=== PATIENT | male | born 1935 | race Caucasian/White ===

== ENCOUNTER 2016-12-01 10:23 | Emergency (ER) | payer MEDICARE ==
[2016-12-01] MEDS ORDERED: DIPH,PERTUS(ACELL)TETVAC-LF 0.5 ML VIAL IM ONE (10:52)
--- NOTE | 2016-12-01 11:01 | ED ---
Wound/Laceration HPI - General Chief Complaint: Wound/Laceration Stated Complaint: Right Thumb Lac- blood thinners Time Seen by Provider: 12/01/16 10:43 Source: patient, RN notes reviewed, old records reviewed Mode of arrival: ambulatory Limitations: no limitations - History of Present Illness Initial Comments: This is an 81-year-old male presents emergency Department chief complaint of right thumb laceration. Patient reports he was starting his leaf blower and his thumb got caught in the mechanism. Patient reports he took a chunk out of the thumb out. He denies any pain with range of motion. Patient states that he does not know the status of his tetanus vaccination. He denies any numbness or tingling distal to the laceration. Patient states that he is right-handed. - Related Data Home Medications Medication Instructions Recorded Confirmed Finasteride [Proscar] 5 mg PO DIRECTED 12/31/13 01/17/15 Metoprolol Tartrate [Lopressor] 12.5 mg PO HS 12/31/13 01/17/15 Omeprazole [PriLOSEC] 20 mg PO DAILY PRN 12/31/13 01/14/15 amLODIPine BESYLATE [Amlodipine 2.5 mg PO DAILY 12/31/13 01/17/15 Besylate] Rivaroxaban [Xarelto] 20 mg PO HS 01/14/15 01/17/15 Previous Rx's Medication Instructions Recorded Cephalexin [Keflex] 500 mg PO Q6H 7 Days 12/01/16 Allergies Allergy/AdvReac Type Severity Reaction Status Date / Time No Known Allergies Allergy Verified 01/14/15 14:13 Review of Systems ROS Statement: Those systems with pertinent positive or pertinent negative responses have been documented in the HPI. ROS Other: All systems not noted in ROS Statement are negative. Past Medical History Past Medical History: Atrial Fibrillation, GERD/Reflux, Hyperlipidemia, Myocardial Infarction ([place]) Additional Past Medical History / Comment(s): varicose veins, History of Any Multi-Drug Resistant Organisms: None Reported Past Surgical History: Hernia Repair, Tonsillectomy Additional Past Surgical History / Comment(s): cardioversion, hemorrhoid banding , Past Anesthesia/Blood Transfusion Reactions: No Reported Reaction Past Psychological History: No Psychological Hx Reported Smoking Status: Former smoker - Past Family History Father Family Medical History: Cancer Mother Family Medical History: Cancer Daughter(s) Family Medical History: Cancer General Exam - General Exam Comments Initial Comments: This is an 81-year-old male. No acute distress. Limitations: no limitations General appearance: alert, in no apparent distress Head exam: Present: atraumatic, normocephalic, normal inspection Eye exam: Present: normal appearance, PERRL, EOMI. Absent: scleral icterus, conjunctival injection, periorbital swelling ENT exam: Present: normal exam, mucous membranes moist Neck exam: Present: normal inspection. Absent: tenderness, meningismus, lymphadenopathy Respiratory exam: Present: normal lung sounds bilaterally. Absent: respiratory distress, wheezes, rales, rhonchi, stridor Cardiovascular Exam: Present: regular rate, normal rhythm, normal heart sounds. Absent: systolic murmur, diastolic murmur, rubs, gallop, clicks GI/Abdominal exam: Present: soft, normal bowel sounds. Absent: distended, tenderness, guarding, rebound, rigid Extremities exam: Present: normal inspection, full ROM, normal capillary refill. Absent: tenderness, pedal edema, joint swelling, calf tenderness Right Hand Wrist exam: Present: laceration (right thumb laceration measuring 3cm and there is evidence of missing tissue. Patient does have full rnage of motion and distal sensation of the thumb. a). Absent: normal inspection Neuro motor exam: Present: wrist extension intact, thumb opposition intact, thumb IP flexion intact, thumb adduction intact, fingers 2-5 abduction intact Neurosensory exam: Present: 2-point discrimination, radial nerve intact, ulnar nerve intact, median nerve intact Vascular: Present: normal capillary refill Back exam: Present: normal inspection Neurological exam: Present: alert Psychiatric exam: Present: normal affect, normal mood Skin exam: Present: warm, dry, intact, normal color Course Vital Signs 12/01/16 12/01/16 10:28 12:27 Temperature 96.8 F L 97 F L Pulse Rate 75 72 Respiratory 17 16 Rate Blood Pressure 127/72 122/68 O2 Sat by Pulse 99 99 Oximetry Procedures - Laceration Laceration #1 Indication: laceration Site: hand (right thumb) Size (cm): 3 Description: irregular Depth: simple, single layer Anesthetic Used: lidocaine 1% Anesthesia Technique: local infiltration Amount (mls): 4 Pre-repair: wound explored, irrigated extensively Type of Sutures: nylon Size of Sutures: 5-0 Number of Sutures: 4 Technique: simple, interrupted Patient Tolerated Procedure: well, no complications Medical Decision Making - Medical Decision Making This is an 81-year-old male presents emergency Department chief complaint of right thumb laceration. Patient reports he was starting his leaf blower and his thumb got caught in the mechanism. Patient reports he took a chunk out of the thumb out. He denies any pain with range of motion. Patient has a 3cm laceration, and tissue is missing. Patient has full range of motion and sensation. Bleeding well controlled. Patient given updated tetanus and wound was thoroughly irrigated. Patient xray shows evidence of soft tissue deformity, however there is no acute fracture or foreign body. Patient was given 4 sutures and the wound was closed and gelfoam placed overtop. Patient given referral to hand specialist, and return parameteres discussed. - Radiology Data Radiology results: report reviewed No definite acute fracture dislocation. Follow-up in 7 intensive 10 days to be suggested. Large soft tissue defect suggestive of laceration. No foreign body noted. Disposition Clinical Impression: Laceration of right thumb Disposition: HOME SELF-CARE Condition: Good Instructions: Finger Laceration (ED) Additional Instructions: Patient is to follow-up with orthopedic physician on Saturday. Patient needs to have the dressing changed by the physician whenever they're able to be seen. Keep the dressing on until then. Return to the emergency Department alarming signs or symptoms occur including infection, with increased redness or drainage from the incision. Prescriptions: Cephalexin [Keflex] 500 mg PO Q6H 7 Days Referrals: Eve Swartz MD [Primary Care Provider] - 1-2 days Souleymane Raines DO [Doctor of Osteopathic Medicine] - 1-2 days Time of Disposition: 12:19
--- NOTE | 2016-12-01 11:10 | XR ---
EXAMINATION TYPE: XR finger RT DATE OF EXAM: 12/01/2016 COMPARISON: NONE HISTORY: Pain with laceration TECHNIQUE: Three views are submitted. FINDINGS: The osseous structures are intact. Arthropathy of the first MCP joint. There is no acute fracture or dislocation. Large soft tissue defect. IMPRESSION: 1. No definite acute fracture or dislocation if symptoms persist, follow-up study in 7 to 10 days wo uld be suggested. 2. Large soft tissue defects suggestive of laceration. No foreign body.
[2016-12-01] MEDS ORDERED: GELATIN SPONGE,ABSORB (SMALL) 1 EACH SPONGE TOPICAL STA (11:13)
[2016-12-01 12:37] VITALS: BP 122/68; PULSE 72; RESP 16; TEMP 97
== END 2016-12-01 12:38 | disposition home or self-care (01) ==
LOC: EC 10:23
DX: S61.011A Laceration without foreign body of right thumb without damage to nail, initial encounter (principal); I48.91 Unspecified atrial fibrillation; K21.9 Gastro-esophageal reflux disease without esophagitis; E78.5 Hyperlipidemia, unspecified; I25.2 Old myocardial infarction; Z87.891 Personal history of nicotine dependence; Z79.899 Other long term (current) drug therapy; Z23 Encounter for immunization; Y92.009 Unspecified place in unspecified non-institutional (private) residence as the place of occurrence of the external cause; W26.9XXA Contact with unspecified sharp object(s), initial encounter
CPT/HCPCS: 90471; 90715; 99283

== ENCOUNTER → 2017-10-10 | Outpatient (CLI) | payer MEDICARE ==
[2017-10-10 11:28] LABS: Calcium 9.5 mg/dL (8.4-10.2); Potassium 4.8 mmol/L (3.5-5.1)
== END | disposition home or self-care (01) ==
LOC: LABWHC1 09:56
PROVIDERS: ATTEND Internal Medicine Interventional Cardiology
DX: I10 Essential (primary) hypertension (principal)
CPT/HCPCS: 36415; 80048

== ENCOUNTER → 2019-12-16 | Outpatient (CLI) | payer MEDICARE | END | disposition home or self-care (01) | LOC: LABWHC1 14:58 | PROVIDERS: ATTEND Ophthalmology | DX: Z01.818 Encounter for other preprocedural examination (principal); Z20.828 Contact with and (suspected) exposure to other viral communicable diseases | CPT/HCPCS: U0003; C9803 ==

== ENCOUNTER → 2019-12-30 | Outpatient (CLI) | payer MEDICARE | END | disposition home or self-care (01) | LOC: LABWHC1 11:49 | PROVIDERS: ATTEND Ophthalmology | DX: Z01.818 Encounter for other preprocedural examination (principal) | CPT/HCPCS: U0003; C9803 ==

== ENCOUNTER 2020-02-01 09:14 | Emergency (ER) | payer MEDICARE ==
[2020-02-01 10:19] LABS: Basophils # (A) 0.1 k/uL (0-0.2); Basophils % (A) 1 %; Eosinophils # (A) 0.1 k/uL (0-0.7); Eosinophils % (A) 1 %; HCT 54.8 % (39.0-53.0); HGB 17.7 gm/dL (13.0-17.5); Lymphocytes # (A) 1.7 k/uL (1.0-4.8); Lymphocytes % (A) 20 %; MCH 33.1 pg (25.0-35.0); MCHC 32.3 g/dL (31.0-37.0); MCV 102.6 fL (80.0-100.0); Macrocytosis Slight; Mean Platelet Volume 6.8; Monocytes # (A) 0.5 k/uL (0-1.0); Monocytes % (A) 6 %; Neutrophils # (A) 5.7 k/uL (1.3-7.7); Neutrophils % (A) 70 %; Platelet Count 231 k/uL (150-450); RBC 5.34 m/uL (4.30-5.90); RDW 12.8 % (11.5-15.5); WBC 8.2 k/uL (3.8-10.6)
[2020-02-01 10:29] LABS: Calcium 9.8 mg/dL (8.4-10.2); Magnesium 1.9 mg/dL (1.6-2.3); Potassium 4.6 mmol/L (3.5-5.1); Total Bilirubin 1.2 mg/dL (0.2-1.3); Total Protein 7.1 g/dL (6.3-8.2)
--- NOTE | 2020-02-01 10:35 | ED ---
General Adult HPI - General Chief complaint: Shortness of Breath Stated complaint: lt sided numbness, SOB Time Seen by Provider: 02/01/20 09:44 Source: patient Mode of arrival: ambulatory Limitations: no limitations - History of Present Illness Initial comments: Patient is an 84-year-old male, with history of A. fib on xarelto , presenting to the emergency department with complaints of shortness of breath and some left arm numbness that happened yesterday. Patient states around noon yesterday he noticed some numbness in his left arm and hand, then he took a nitro tablet to help with his symptoms. Patient states this lasted about 10 minutes and then the numbness went away. Patient denies any chest pain, shortness of breath, dizziness with this. He denies any headaches. He states he felt fine for the rest of the day. Patient states he called his PCP this morning wanting a checkup appointment however his PCP sent him into the ER to be evaluated. Patient states he is asymptomatic at this time, no chest pain, no shortness of breath, no numbness or tingling into his extremities. Patient denies any recent fever, chills, cough. Patient did mention that approximately 10 days ago he did fall forward after he tripped on the cement. Patient states he landed mostly on his knees and hands but did end up hitting the front part of his head. He states it was no loss of consciousness. He did have a mild abrasion to the area. He states he did not have any dizziness or headache sense and so he did not mention this to anybody. Patient denies any other further complaints. Upon arrival to the ER, his vitals are stable. - Related Data Home Medications Medication Instructions Recorded Confirmed Finasteride [Proscar] 5 mg PO W/SUPPER 12/31/13 02/01/20 Cyanocobalamin (Vitamin B-12) 1,000 mcg PO W/SUPPER 02/01/20 02/01/20 [Vitamin B-12] Isosorbide Mononitrate [Ismo] 10 mg PO BID 02/01/20 02/01/20 Methylfolate 400mcg 400 mcg PO W/SUPPER 02/01/20 02/01/20 Methylfolate 400mcg 800 mcg PO QAM 02/01/20 02/01/20 Metoprolol Tartrate [Lopressor] 75 mg PO BID 02/01/20 02/01/20 Nitroglycerin Sl Tabs [Nitrostat] 0.4 mg SUBLINGUAL Q5M PRN 02/01/20 02/01/20 Pantoprazole Sodium [Protonix] 40 mg PO W/SUPPER 02/01/20 02/01/20 Ranolazine [Ranexa] 500 mg PO BID 02/01/20 02/01/20 Rivaroxaban [Xarelto] 15 mg PO W/SUPPER 02/01/20 02/01/20 lisinopriL [Zestril] 5 mg PO W/SUPPER 02/01/20 02/01/20 Allergies Allergy/AdvReac Type Severity Reaction Status Date / Time No Known Allergies Allergy Verified 02/01/20 11:08 Review of Systems ROS Statement: Those systems with pertinent positive or pertinent negative responses have been documented in the HPI. ROS Other: All systems not noted in ROS Statement are negative. Past Medical History Past Medical History: Atrial Fibrillation, GERD/Reflux, Hyperlipidemia, Myocardial Infarction ([place]) Additional Past Medical History / Comment(s): varicose veins, History of Any Multi-Drug Resistant Organisms: None Reported Past Surgical History: Hernia Repair, Tonsillectomy Additional Past Surgical History / Comment(s): cardioversion, hemorrhoid banding, Past Anesthesia/Blood Transfusion Reactions: No Reported Reaction Past Psychological History: No Psychological Hx Reported Smoking Status: Never smoker Past Alcohol Use History: Occasional Past Drug Use History: None Reported - Past Family History Father Family Medical History: Cancer Mother Family Medical History: Cancer Daughter(s) Family Medical History: Cancer General Exam - General Exam Comments Initial Comments: GENERAL: Patient is well-developed and well-nourished. Patient is nontoxic and in no acute distress. HEAD: Atraumatic, normocephalic. EYES: Pupils equal round and reactive to light, extraocular movements intact, sclera anicteric, conjunctiva are normal. Eyelids were unremarkable. ENT: TMs normal, nares patent, oropharynx clear without exudates. Moist mucous membranes. NECK: Normal range of motion, supple without lymphadenopathy or JVD. LUNGS: Unlabored respirations. Breath sounds clear to auscultation bilaterally and equal. No wheezes rales or rhonchi. HEART: Regular rate and rhythm without murmurs, rubs or gallops. ABDOMEN: Soft, nontender, normoactive bowel sounds. No guarding, no rebound. No masses appreciated. : Deferred MUSCULOSKELETAL: Normal extremities with adequate strength and normal range of motion, no pitting or edema. No clubbing or cyanosis. NEUROLOGICAL: Patient is alert and oriented x 3. Motor and sensory are also intact. Cranial nerves II through XII grossly intact. Symmetrical smile. Normal speech, normal gait. PSYCH: Normal mood, normal affect. SKIN: Warm, Dry, normal turgor, no rashes or lesions noted. Limitations: no limitations Expanded Speech: Present: fluid speech Cranial nerves: EOM's Intact: Normal, Tongue Deviation: Normal, Nystagmus: Normal, Facial Sensation: Normal Cerebellar function: Finger to Nose: Normal, Romberg: Normal Upper motor neuron: Pronator Drift: Normal Sensory exam: Upper Extremity Light Touch: Normal, Lower Extremity Light Touch: Normal Motor strength exam: RUE: 5, LUE: 5, RLE: 5, LLE: 5 Course Vital Signs 02/01/20 02/01/20 09:18 10:00 Temperature 97.9 F Pulse Rate 90 81 Respiratory 16 18 Rate Blood Pressure 169/109 126/93 O2 Sat by Pulse 99 94 L Oximetry EKG Findings - EKG Comments: EKG Findings:: EKG shows A. fib, no signs of acute ischemia. Ventricular rate 75, QRS duration 82, QT 388. Medical Decision Making - Medical Decision Making Patient is an 84-year-old male here with history of A. fib presenting with sh ortness of breath and left arm numbness that lasted about 10 minutes yesterday. He is asymptomatic today. Sent in by his PCP. He also mentioned that 10 days ago he had a fall forward hitting the front part of his head. His exam today is unremarkable, no acute deficits, no neuro deficits. EKG shows A. fib, no acute process. Labs show normal white count, normal hemoglobin, coags are within nor mal limits, kidney function is stable, lactic acid was slightly elevated at 2.2, most likely dehydration. Troponin was normal, BNP was 1000. I did do a chest x-ray which revealed no acute process, CT of the head was also negative. Patient has remained asymptomatic in the ER. His vital signs have also remained stable. I discussed with patient these findings today. He is stable for discharge. I strongly recommend following up with his PCP in 1-3 days. Patient is in agreement with this plan of care. Strict return parameters were discussed with the patient and he verbalized understanding. Case discussed with Dr. Rivera. - Lab Data Result diagrams: 02/01/20 10:06 02/01/20 10:06 Lab Results 02/01/20 02/01/20 02/01/20 Range/Units 10:06 10:06 10:06 WBC 8.2 (3.8-10.6) k/uL RBC 5.34 (4.30-5.90) m/uL Hgb 17.7 H (13.0-17.5) gm/dL Hct 54.8 H (39.0-53.0) % MCV 102.6 H (80.0-100.0) fL MCH 33.1 (25.0-35.0) pg MCHC 32.3 (31.0-37.0) g/dL RDW 12.8 (11.5-15.5) % Plt Count 231 (150-450) k/uL Neutrophils % 70 % Lymphocytes % 20 % Monocytes % 6 % Eosinophils % 1 % Basophils % 1 % Neutrophils # 5.7 (1.3-7.7) k/uL Lymphocytes # 1.7 (1.0-4.8) k/uL Monocytes # 0.5 (0-1.0) k/uL Eosinophils # 0.1 (0-0.7) k/uL Basophils # 0.1 (0-0.2) k/uL Macrocytosis Slight PT (9.0-12.0) sec INR (<1.2) APTT (22.0-30.0) sec Sodium 139 (137-145) mmol/L Potassium 4.6 (3.5-5.1) mmol/L Chloride 105 (98-107) mmol/L Carbon Dioxide 28 (22-30) mmol/L Anion Gap 6 mmol/L BUN 20 (9-20) mg/dL Creatinine 1.28 H (0.66-1.25) mg/dL Est GFR (CKD-EPI)AfAm 58 (>60 ml/min/1.73 sqM) Est GFR (CKD-EPI)NonAf 50 (>60 ml/min/1.73 sqM) Glucose 111 H (74-99) mg/dL Plasma Lactic Acid Cecilio 2.2 H* (0.7-2.0) mmol/L Calcium 9.8 (8.4-10.2) mg/dL Magnesium 1.9 (1.6-2.3) mg/dL Total Bilirubin 1.2 (0.2-1.3) mg/dL AST 22 (17-59) U/L ALT 7 (4-49) U/L Alkaline Phosphatase 75 (38-126) U/L Troponin I (0.000-0.034) ng/mL NT-Pro-B Natriuret Pep pg/mL Total Protein 7.1 (6.3-8.2) g/dL Albumin 4.0 (3.5-5.0) g/dL 02/01/20 02/01/20 02/01/20 Range/Units 10:06 10:06 10:50 WBC (3.8-10.6) k/uL RBC (4.30-5.90) m/uL Hgb (13.0-17.5) gm/dL Hct (39.0-53.0) % MCV (80.0-100.0) fL MCH (25.0-35.0) pg MCHC (31.0-37.0) g/dL RDW (11.5-15.5) % Plt Count (150-450) k/uL Neutrophils % % Lymphocytes % % Monocytes % % Eosinophils % % Basophils % % Neutrophils # (1.3-7.7) k/uL Lymphocytes # (1.0-4.8) k/uL Monocytes # (0-1.0) k/uL Eosinophils # (0-0.7) k/uL Basophils # (0-0.2) k/uL Macrocytosis PT 12.7 H (9.0-12.0) sec INR 1.3 H (<1.2) APTT 35.7 H (22.0-30.0) sec Sodium (137-145) mmol/L Potassium (3.5-5.1) mmol/L Chloride (98-107) mmol/L Carbon Dioxide (22-30) mmol/L Anion Gap mmol/L BUN (9-20) mg/dL Creatinine (0.66-1.25) mg/dL Est GFR (CKD-EPI)AfAm (>60 ml/min/1.73 sqM) Est GFR (CKD-EPI)NonAf (>60 ml/min/1.73 sqM) Glucose (74-99) mg/dL Plasma Lactic Acid Cecilio (0.7-2.0) mmol/L Calcium (8.4-10.2) mg/dL Magnesium (1.6-2.3) mg/dL Total Bilirubin (0.2-1.3) mg/dL AST (17-59) U/L ALT (4-49) U/L Alkaline Phosphatase (38-126) U/L Troponin I <0.012 (0.000-0.034) ng/mL NT-Pro-B Natriuret Pep 1030 pg/mL Total Protein (6.3-8.2) g/dL Albumin (3.5-5.0) g/dL Disposition Clinical Impression: Shortness of breath, Arm numbness left Disposition: HOME SELF-CARE Condition: Stable Instructions (If sedation given, give patient instructions): Normal Exam (ED) Additional Instructions: Please return to the Emergency Department if symptoms worsen or any other concerns. Your workup today was normal, mild dehydration. Increased water intake. Follow-up with your PCP in 1-3 days. Is patient prescribed a controlled substance at d/c from ED?: No Referrals: Eve Swartz MD [Primary Care Provider] - 1-2 days
--- NOTE | 2020-02-01 10:53 | XR ---
EXAMINATION TYPE: XR chest 2V DATE OF EXAM: 02/01/2020 COMPARISON: X-ray chest 12/30/2013 HISTORY: Difficulty breathing TECHNIQUE: Frontal and lateral views of the chest are obtained. FINDINGS: Patient is status post median sternotomy and atrial appendage clipping placement. Aorta is dense. Biapical pleural thickening is noted. There are overlying cardiac leads. There are prominent l cyril volumes which may be indicative of underlying COPD. There are coronary artery calcifications, pos sible stent. There is no focal air space opacity, pleural effusion, or pneumothorax seen. The cardia c silhouette size is within normal limits. The osseous structures are intact. IMPRESSION: No acute cardiopulmonary process.
--- NOTE | 2020-02-01 11:00 | CT ---
EXAMINATION TYPE: CT brain wo con DATE OF EXAM: 02/01/2020 HISTORY: Left sided numbness. No known injury.. CT DLP: 1172.4 mGycm. Automated Exposure Control for Dose Reduction was Utilized. TECHNIQUE: CT scan of the head is performed without contrast. COMPARISON: None FINDINGS: There is no acute intracranial hemorrhage, midline shift, or mass effect identified. There is moderat e diffuse volume loss. Marked patchy white matter hypodensities. The ventricles, sulci, and cisterns are normal in size and configuration. No extra-axial fluid collection. Bones and extracranial soft tissues are intact. The globes are gross ly symmetric. Visualized sinuses and mastoid air cells are clear. IMPRESSION: 1. No acute intracranial hemorrhage, midline shift, or mass effect. 2. Diffuse volume loss and marked patchy white matter hypodensities, likely sequela of chronic microv ascular ischemic change.
[2020-02-01 11:10] LABS: INR 1.3 (<1.2); Partial Thromboplastin Time 35.7 sec (22.0-30.0); Prothrombin Time 12.7 sec (9.0-12.0)
[2020-02-01 11:22] VITALS: BP 123/90; PULSE 69; RESP 17; TEMP 97.5
== END 2020-02-01 11:37 | disposition home or self-care (01) ==
LOC: EC 09:14
DX: R06.02 Shortness of breath (principal); R20.0 Anesthesia of skin; S09.90XA Unspecified injury of head, initial encounter; K21.9 Gastro-esophageal reflux disease without esophagitis; E78.5 Hyperlipidemia, unspecified; I25.2 Old myocardial infarction; Z79.899 Other long term (current) drug therapy; W01.10XA Fall on same level from slipping, tripping and stumbling with subsequent striking against unspecified object, initial encounter
CPT/HCPCS: 36415; 70450; 71046; 80053; 83605; 83735; 83880; 84484; 85025; 85610; 85730; 93005; 99285

== ENCOUNTER → 2020-06-29 | Outpatient (CLI) | payer MEDICARE | END | disposition home or self-care (01) | LOC: LABWHC1 11:30 | PROVIDERS: ATTEND Psychiatry & Neurology Neurology | DX: G62.9 Polyneuropathy, unspecified (principal); Z79.899 Other long term (current) drug therapy | CPT/HCPCS: 36415; 82607; 82947 ==

== ENCOUNTER 2020-09-12 19:05 | Observation (INO) | payer MEDICARE ==
[2020-09-12 19:49] LABS: Basophils % (A) 1 %; Eosinophils # (A) 0.1 k/uL (0-0.7); Eosinophils % (A) 1 %; HCT 45.3 % (39.0-53.0); HGB 15.2 gm/dL (13.0-17.5); Lymphocytes # (A) 1.3 k/uL (1.0-4.8); Lymphocytes % (A) 18 %; MCH 33.3 pg (25.0-35.0); MCHC 33.6 g/dL (31.0-37.0); Mean Platelet Volume 6.8; Monocytes # (A) 0.6 k/uL (0-1.0); Monocytes % (A) 8 %; Neutrophils # (A) 5.5 k/uL (1.3-7.7); Neutrophils % (A) 71 %; Platelet Count 226 k/uL (150-450); RBC 4.58 m/uL (4.30-5.90); RDW 12.7 % (11.5-15.5); WBC 7.7 k/uL (3.8-10.6)
[2020-09-12 19:58] LABS: INR 1.1 (<1.2); Partial Thromboplastin Time 30.5 sec (22.0-30.0); Prothrombin Time 11.9 sec (9.0-12.0)
--- NOTE | 2020-09-12 20:05 | XR ---
EXAMINATION TYPE: XR chest 2V DATE OF EXAM: 09/12/2020 COMPARISON: 02/01/2020 HISTORY: Chest pain. Weakness. TECHNIQUE: FINDINGS: There is mild coarsening of interstitial markings in the left lower lobe. There is no pulmo nary consolidation. There is no heart failure. There are sternal wires. Thoracic aorta is atheromatou s. There are chest leads. There is pleural scarring at the lung apices bilaterally. IMPRESSION: Pulmonary fibrotic changes. No definite heart failure. There is some atelectasis at the l eft lung base. Inspiration decreased compared to old exam.
[2020-09-12 20:07] LABS: Albumin 3.8 g/dL (3.5-5.0); Calcium 9.5 mg/dL (8.4-10.2); Potassium 4.6 mmol/L (3.5-5.1); Total Bilirubin 0.6 mg/dL (0.2-1.3); Total Protein 6.6 g/dL (6.3-8.2)
--- NOTE | 2020-09-12 20:55 | CT ---
EXAMINATION TYPE: CT brain wo con DATE OF EXAM: 09/12/2020 COMPARISON: 02/01/2020 HISTORY: Left arm weakness. CT DLP: 1191.8 mGycm Automated exposure control for dose reduction was used. There is cerebral atrophy. There is no mass effect nor midline shift. There is no sign of intracrania l hemorrhage. There is mild hypodensity in the periventricular white matter. Calvarium is intact. Sku ll base is intact. IMPRESSION: Cerebral atrophy and chronic small vessel ischemia. No change. No acute abnormality.
[2020-09-12] MEDS ORDERED: NALOXONE 0.4 MG/ML 1 ML VIAL IV PRN (21:34)
--- NOTE | 2020-09-12 21:34 | ED ---
General Adult HPI - General Chief complaint: Neuro Symptoms/Deficit Stated complaint: Poss stroke/chest pain Time Seen by Provider: 09/12/20 19:15 Source: patient Mode of arrival: ambulatory Limitations: no limitations - History of Present Illness Initial comments: Gokul is a very pleasant 85-year-old gentleman is brought to the ER today by his son for evaluation of concern for stroke. Patient was at a baseball game when he began having weakness primarily in his right hand. He is unable to grab popcorn or hold his drink. He ended up dropping his drinks feeling all over himself which is not typical for him. When his son convinced him to come to the ER patient began complaining of a headache and blurred vision in route to the hospital. Patient has a history of TIAs in the past, he is followed by Dr. Ganesh walsh, he was told last month that he had blood clots on MRI of his brain. He does take several to daily. He is compliant with his medications. - Related Data Home Medications Medication Instructions Recorded Confirmed Finasteride [Proscar] 5 mg PO W/SUPPER 12/31/13 02/01/20 Cyanocobalamin (Vitamin B-12) 1,000 mcg PO W/SUPPER 02/01/20 02/01/20 [Vitamin B-12] Isosorbide Mononitrate [Ismo] 10 mg PO BID 02/01/20 02/01/20 Methylfolate 400mcg 400 mcg PO W/SUPPER 02/01/20 02/01/20 Methylfolate 400mcg 800 mcg PO QAM 02/01/20 02/01/20 Metoprolol Tartrate [Lopressor] 75 mg PO BID 02/01/20 02/01/20 Nitroglycerin Sl Tabs [Nitrostat] 0.4 mg SUBLINGUAL Q5M PRN 02/01/20 02/01/20 Pantoprazole Sodium [Protonix] 40 mg PO W/SUPPER 02/01/20 02/01/20 Ranolazine [Ranexa] 500 mg PO BID 02/01/20 02/01/20 Rivaroxaban [Xarelto] 15 mg PO W/SUPPER 02/01/20 02/01/20 lisinopriL [Zestril] 5 mg PO W/SUPPER 02/01/20 02/01/20 Allergies Allergy/AdvReac Type Severity Reaction Status Date / Time No Known Allergies Allergy Verified 09/12/20 19:12 Review of Systems ROS Statement: Those systems with pertinent positive or pertinent negative responses have been documented in the HPI. ROS Other: All systems not noted in ROS Statement are negative. Past Medical History Past Medical History: Atrial Fibrillation, GERD/Reflux, Hyperlipidemia, My ocardial Infarction (IA) Additional Past Medical History / Comment(s): varicose veins, History of Any Multi-Drug Resistant Organisms: None Reported Past Surgical History: Hernia Repair, Tonsillectomy Additional Past Surgical History / Comment(s): cardioversion, hemorrhoid banding, Past Anesthesia/Blood Transfusion Reactions: No Reported Reaction Past Psychological History: No Psychological Hx Reported Smoking Status: Never smoker Past Alcohol Use History: Occasional Past Drug Use History: None Reported - Past Family History Father Family Medical History: Cancer Mother Family Medical History: Cancer Daughter(s) Family Medical History: Cancer General Exam - General Exam Comments Initial Comments: Physical Exam GENERAL: Patient is well-developed and well-nourished. Patient is nontoxic and well- hydrated and is in no distress. HENT: Normocephalic, Atraumatic. EYES: PERRL, EOMI PULMONARY: Unlabored respirations. No audible rales rhonchi or wheezing was noted. CARDIOVASCULAR: Irregular ABDOMEN: Soft and nontender with normal bowel sounds. SKIN: Skin is clear with no lesions or rashes and otherwise unremarkable. : Deferred NEUROLOGIC: Patient is alert and oriented x3. Moving all extremities spontaneously NIH 0 MUSCULOSKELETAL: Normal extremities with adequate strength and full range of motion. No lower extremity swelling or edema. No calf tenderness. PSYCHIATRIC: Normal psychiatric evaluation. Limitations: no limitations Course Vital Signs 09/12/20 09/12/20 09/12/20 19:08 19:15 19:20 Temperature 97.8 F 98.2 F 98.2 F Pulse Rate 138 H 79 80 Respiratory 20 18 18 Rate Blood Pressure 187/100 174/108 172/106 O2 Sat by Pulse 100 96 95 Oximetry 09/12/20 19:30 Temperature 98.2 F Pulse Rate 79 Respiratory 18 Rate Blood Pressure 154/104 O2 Sat by Pulse 95 Oximetry EKG Findings - EKG Comments: EKG Findings:: EKG obtained in 1919 rate is 83 rhythm is A. fib, no axis, normal intervals, QRS [address]Tc [address] elevations or depressions no evidence of ischemia or infarction Medical Decision Making - Medical Decision Making Patient was seen and evaluated, patient's symptoms resolved prior to arrival Stroke orders were placed CT brain without acute findings Labs are baseline for the patient Discussed with the patient we will plan to admit for evaluation by neurology, patient is agreeable Patient was asymptomatic throughout ER stay - Lab Data Result diagrams: 09/12/20 19:41 09/12/20 19:41 Lab Results 09/12/20 09/12/20 09/12/20 Range/Units 19:41 19:41 19:41 WBC 7.7 (3.8-10.6) k/uL RBC 4.58 (4.30-5.90) m/uL Hgb 15.2 (13.0-17.5) gm/dL Hct 45.3 (39.0-53.0) % MCV 99.0 (80.0-100.0) fL MCH 33.3 (25.0-35.0) pg MCHC 33.6 (31.0-37.0) g/dL RDW 12.7 (11.5-15.5) % Plt Count 226 (150-450) k/uL MPV 6.8 Neutrophils % 71 % Lymphocytes % 18 % Monocytes % 8 % Eosinophils % 1 % Basophils % 1 % Neutrophils # 5.5 (1.3-7.7) k/uL Lymphocytes # 1.3 (1.0-4.8) k/uL Monocytes # 0.6 (0-1.0) k/uL Eosinophils # 0.1 (0-0.7) k/uL Basophils # 0.0 (0-0.2) k/uL PT 11.9 (9.0-12.0) sec INR 1.1 (<1.2) APTT 30.5 H (22.0-30.0) sec Sodium 137 (137-145) mmol/L Potassium 4.6 (3.5-5.1) mmol/L Chloride 105 (98-107) mmol/L Carbon Dioxide 23 (22-30) mmol/L Anion Gap 9 mmol/L BUN 21 H (9-20) mg/dL Creatinine 1.18 (0.66-1.25) mg/dL Est GFR (CKD-EPI)AfAm 64 (>60 ml/min/1.73 sqM) Est GFR (CKD-EPI)NonAf 55 (>60 ml/min/1.73 sqM) Glucose 140 H (74-99) mg/dL Calcium 9.5 (8.4-10.2) mg/dL Total Bilirubin 0.6 (0.2-1.3) mg/dL AST 25 (17-59) U/L ALT 6 (4-49) U/L Alkaline Phosphatase 86 (38-126) U/L Troponin I (0.000-0.034) ng/mL Total Protein 6.6 (6.3-8.2) g/dL Albumin 3.8 (3.5-5.0) g/dL 09/12/20 Range/Units 19:41 WBC (3.8-10.6) k/uL RBC (4.30-5.90) m/uL Hgb (13.0-17.5) gm/dL Hct (39.0-53.0) % MCV (80.0-100.0) fL MCH (25.0-35.0) pg MCHC (31.0-37.0) g/dL RDW (11.5-15.5) % Plt Count (150-450) k/uL MPV Neutrophils % % Lymphocytes % % Monocytes % % Eosinophils % % Basophils % % Neutrophils # (1.3-7.7) k/uL Lymphocytes # (1.0-4.8) k/uL Monocytes # (0-1.0) k/uL Eosinophils # (0-0.7) k/uL Basophils # (0-0.2) k/uL PT (9.0-12.0) sec INR (<1.2) APTT (22.0-30.0) sec Sodium (137-145) mmol/L Potassium (3.5-5.1) mmol/L Chloride (98-107) mmol/L Carbon Dioxide (22-30) mmol/L Anion Gap mmol/L BUN (9-20) mg/dL Creatinine (0.66-1.25) mg/dL Est GFR (CKD-EPI)AfAm (>60 ml/min/1.73 sqM) Est GFR (CKD-EPI)NonAf (>60 ml/min/1.73 sqM) Glucose (74-99) mg/dL Calcium (8.4-10.2) mg/dL Total Bilirubin (0.2-1.3) mg/dL AST (17-59) U/L ALT (4-49) U/L Alkaline Phosphatase (38-126) U/L Troponin I <0.012 (0.000-0.034) ng/mL Total Protein (6.3-8.2) g/dL Albumin (3.5-5.0) g/dL Disposition Clinical Impression: TIA (transient ischemic attack) Disposition: ADMITTED IP TO THIS HOSP Condition: Stable Is patient prescribed a controlled substance at d/c from ED?: No Referrals: Eve Swartz MD [Primary Care Provider] - 1-2 days
--- NOTE | 2020-09-12 21:50 | CT ---
EXAMINATION TYPE: CT angio head neck DATE OF EXAM: 09/12/2020 COMPARISON: None HISTORY: Left arm weakness. CT DLP: 640 mGycm Automated exposure control for dose reduction was used. CONTRAST: Performed with IV Contrast, patient injected with 65ml mL of Isovue 370. Images obtained from the aortic arch to the vertex of the brain with IV contrast. There are 3-D post processed images. There is atheromatous change in the aortic arch. 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 There i s no dissection. There is arterial flow in both subclavian arteries. There is arterial flow in the co mmon internal and extra carotid arteries bilaterally. There is arterial flow in both vertebral arteries. There is minimal plaque formation at the left costa tid artery bifurcation. Lumen narrowing is less than 10%. There is no evidence of carotid or vertebra l artery aneurysm or dissection. There is arterial flow in the vertebrobasilar artery system. There is arterial flow in the anterior middle and posterior cerebral arteries. There is no mass effec t. There is normal enhancement of the venous sinuses. I see no evidence of hemodynamic stenosis. Ther e is no evidence of aneurysm or neovascularity. There is a diminutive A1 segment of the left anterior cerebral artery. This is probably developmental. There is large A1 segment of the right anterior cer ebral artery and probably significant filling of the left anterior cerebral artery through the anteri or communicating artery. IMPRESSION: There is mild atherosclerotic vascular disease. No evidence of hemodynamic stenosis. Small A1 segment of the left anterior cerebral artery is probably developmental. Mild aneurysm of the aortic arch.
[2020-09-12] MEDS ORDERED: FINASTERIDE 5 MG TAB PO SCH (22:00)
[2020-09-12] MEDS: lisinopriL 5 MG TAB PO SCH (22:43)
[2020-09-12] MEDS: ISOSORBIDE MONONITRATE 10 MG TAB PO SCH (22:43)
[2020-09-12] MEDS: RIVAROXABAN 15 MG TAB PO SCH (22:44)
[2020-09-12] MEDS: METOPROLOL TARTRATE 25 MG TAB PO SCH (22:44)
[2020-09-12] MEDS: PANTOPRAZOLE 40 MG TABLET PO SCH (22:45)
--- NOTE | 2020-09-13 00:03 | US ---
EXAMINATION TYPE: US carotid duplex BILAT DATE OF EXAM: 09/12/2020 COMPARISON: US, CT CLINICAL HISTORY: TIA. TIA per order. Previous smoker. Hx hypertension, hyperlipidemia, A Fib, WI. EXAM MEASUREMENTS: RIGHT: Peak Systolic Velocity (PSV) cm/sec ----- Right CCA: 71.0 ----- Right ICA: 75.5 ----- Right ECA: 107.0 ICA/CCA ratio: 1.1 RIGHT: End Diastole cm/sec ----- Right CCA: 19.3 ----- Right ICA: 18.3 ----- Right ECA: 6.5 LEFT: Peak Systolic Velocity (PSV) cm/sec ----- Left CCA: 58.1 ----- Left ICA: 71.8 ----- Left ECA: 86.1 ICA/CCA ratio: 1.2 LEFT: End Diastole cm/sec ----- Left CCA: 11.0 ----- Left ICA: 21.2 ----- Left ECA: 9.1 VERTEBRALS (direction of flow): Right Vertebral: Antegrade Left Vertebral: Antegrade Rhythm: Arrhythmia No elevated velocities at this time. Intimal thickening seen bilaterally. Plaque seen left CCA and l eft carotid bifurcation. Incidental findings: -Hypoechoic, heterogeneous area with vascularity seen within the right thyroid lobe: 0.6 x 0.6 x 0.5 cm. -Anechoic area with small hyperechoic focus seen within the right thyroid lobe: 0.5 x 0.3 x 0.4 cm. -Anechoic area with small hyperechoic focus and adjacent vascularity seen within the left thyroid lob e: 0.8 x 0.6 x 0.4 cm. IMPRESSION: Multiple thyroid abnormalities are likely benign. There is antegrade flow in the vertebral arteries. The images and measurements suggest less than 20% stenosis in both internal carotid arteries. Criteria for Assigning % of Stenosis / Diameter reduction (Estimation based on the indirect measurements of the internal carotid artery velocities (ICA PSV). 1. Normal (no stenosis)=ICA PSV < 125 cm/s: ratio < 2.0: ICA EDV<40 cm/s. 2. Less than 50% stenosis=ICA PSV < 125 cm/s: ratio < 2.0: ICA EDV<40 cm/s. 3. 50 to 69% stenosis=ICA PSV of 125 to 230 cm/s: ration 2.0 ? 4.0: ICA EDV 40-100 cm/s. 4. Greater than 70% stenosis to near occlusion= ICA PSV > 230 cm/s: ratio > 4.0: ICA EDV > 100 cm/s. 5. Near occlusion= ICA PSV velocities may be low or undetectable: variable ratio and ICA EDV. 6. Total occlusion=unable to detect flow.
[2020-09-13] MEDS: METOPROLOL TARTRATE 25 MG TAB PO SCH ×2 (08:59→20:12)
[2020-09-13] MEDS: RANOLAZINE 500 MG TAB.ER.12H PO SCH ×2 (09:00→20:12)
[2020-09-13] MEDS: ISOSORBIDE MONONITRATE 10 MG TAB PO SCH ×2 (09:00→21:00)
--- NOTE | 2020-09-13 10:54 | ECHOF ---
Referral Reason:TIA MEASUREMENTS -------- HEIGHT: 188.0 cm WEIGHT: 97.5 kg BP: RVIDd: 2.6 cm (< 3.3) IVSd: 1.0 cm (0.6 - 1.1) LVIDd: 4.4 cm (3.9 - 5.3) LVPWd: 1.4 cm (0.6 - 1.1) IVSs: 1.1 cm LVIDs: 3.3 cm LVPWs: 1.2 cm Ao Diam: 3.8 cm (2.0 - 3.7) AV Cusp: 1.7 cm (1.5 - 2.6) LA Diam: 4.6 cm (2.7 - 3.8) MV EXCURSION: 8.330 mm (> 18.000) MV EF SLOPE: 50 mm/s (70 - 150) EPSS: 1.6 cm MV E Sathya: 0.84 m/s MV DecT: 191 ms MV A Sathya: 0.48 m/s MV E/A Ratio: 1.75 AR PHT: 1093 ms RAP: 5.00 mmHg RVSP: 30.18 mmHg FINDINGS -------- This was a technically difficult study with suboptimal views. The left ventricular size is normal. There is mild concentric left ventricular hypertrophy. Overa ll left ventricular systolic function is mildly impaired with, an EF between 45 - 50 %. Basal infer oseptal LV wall motion is hypokinetic. Basal anteroseptal LV wall motion is hypokinetic. The right ventricle is normal in size. The left atrial size is normal. The right atrial size is normal. Lumason used The aortic valve is trileaflet and appears structurally normal. There is mild aortic regurgitation. The mitral valve is normal. Mild mitral regurgitation is present. The tricuspid valve appears structurally normal. Mild tricuspid regurgitation present. Right vent ricular systolic pressure is normal at < 35 mmHg. There is no pulmonic regurgitation present. The aortic root size is normal. IVC Not well visulized. There is no pericardial effusion. CONCLUSIONS -------- 1. The left ventricular size is normal. 2. There is mild concentric left ventricular hypertrophy. 3. Overall left ventricular systolic function is mildly impaired with, an EF between 45 - 50 %. 4. Basal inferoseptal LV wall motion is hypokinetic. 5. Basal anteroseptal LV wall motion is hypokinetic. 6. There is mild aortic regurgitation. 7. Mild mitral regurgitation is present. 8. Mild tricuspid regurgitation present. 9. There is no pericardial effusion. TIMBER SKIDDER: Ne Jimenez RDCS
--- NOTE | 2020-09-13 16:54 | P.HPIM ---
History of Present Illness H&P Date: 09/13/20 Gokul Petit, is an 85-year-old male who presented to [facility] emergency room after having an episode of weakness and numbness involving his right upper extremity, patient was also complaining of blurred vision and slurred speech, symptoms lasted about 2 hours, and resolved on his way to emergency room. He has known history of hypertension, atrial fibrillation and history of previous TIA he is followed by neurologist Dr. Dubois as outpatient. Patient was seen and examined in the emergency room, at this time he is alert and oriented 3 in no apparent distress, he states that all his symptoms have now resolved and has not recurred. Echocardiogram and carotid Doppler were ordered, neurology consultation was requested. Past Medical History Past Medical History: Atrial Fibrillation, GERD/Reflux, Hyperlipidemia, Myocardial Infarction (ID) Additional Past Medical History / Comment(s): varicose veins, History of Any Multi-Drug Resistant Organisms: None Reported Past Surgical History: Hernia Repair, Tonsillectomy Additional Past Surgical History / Comment(s): cardioversion, hemorrhoid banding, Past Anesthesia/Blood Transfusion Reactions: No Reported Reaction Past Psychological History: No Psychological Hx Reported Smoking Status: Never smoker Past Alcohol Use History: Occasional Past Drug Use History: None Reported - Past Family History Father Family Medical History: Cancer Mother Family Medical History: Cancer Daughter(s) Family Medical History: Cancer Son(s) Family Medical History: Cancer Additional Family Medical History / Comment(s): Prostate cancer. Medications and Allergies Home Medications Medication Instructions Recorded Confirmed Type Finasteride [Proscar] 5 mg PO Q48H 12/31/13 09/12/20 History Cyanocobalamin (Vitamin B-12) 1,000 mcg PO W/SUPPER 02/01/20 09/12/20 History [Vitamin B-12] Isosorbide Mononitrate [Ismo] 10 mg PO BID 02/01/20 09/12/20 History Methylfolate 400mcg 400 mcg PO W/SUPPER 02/01/20 09/12/20 History Metoprolol Tartrate [Lopressor] 75 mg PO BID 02/01/20 09/12/20 History Nitroglycerin Sl Tabs [Nitrostat] 0.4 mg SUBLINGUAL Q5M PRN 02/01/20 09/12/20 History Ranolazine [Ranexa] 500 mg PO BID 02/01/20 09/12/20 History Rivaroxaban [Xarelto] 15 mg PO W/SUPPER 02/01/20 09/12/20 History Amoxicillin 500 mg PO QID 09/12/20 09/12/20 History Cholecalciferol [Vitamin D3 (25 50 mcg PO DAILY 09/12/20 09/12/20 History Mcg = 1000 Iu)] Losartan [Cozaar] 12.5 mg PO W/SUPPER 09/12/20 09/12/20 History Methylfolate 1000mcg 1,000 mcg PO DAILY 09/12/20 09/12/20 History Pantoprazole Sodium [Protonix] 20 mg PO W/SUPPER 09/12/20 09/12/20 History Zinc 50 mg PO DAILY 09/12/20 09/12/20 History Allergies Allergy/AdvReac Type Severity Reaction Status Date / Time No Known Allergies Allergy Verified 09/12/20 19:12 Physical Exam Vitals: Vital Signs Temp Pulse Resp BP Pulse Ox 09/13/20 09:15 80 16 148/96 94 L 09/13/20 07:29 75 18 142/104 95 09/13/20 05:30 72 20 139/73 96 09/13/20 04:00 68 20 139/73 97 09/13/20 03:30 82 22 126/77 97 09/13/20 01:00 82 22 151/92 97 09/13/20 00:00 79 22 141/80 98 09/12/20 23:00 78 20 128/93 96 09/12/20 22:00 74 18 114/80 96 09/12/20 21:00 75 18 160/99 95 09/12/20 20:30 75 22 157/113 97 09/12/20 20:00 80 18 152/100 96 09/12/20 19:45 79 20 153/99 95 09/12/20 19:30 98.2 F 79 18 154/104 95 09/12/20 19:20 98.2 F 80 18 172/106 95 09/12/20 19:15 98.2 F 79 18 174/108 96 09/12/20 19:08 97.8 F 138 H 20 187/100 100 Intake and Output 09/12/20 09/13/20 09/13/20 22:59 06:59 14:59 Other: Weight 97.522 kg In general patient is alert and oriented x 3 in no distress HEENT head normocephalic and atraumatic Neck is supple no JVD no goiter no lymphadenopathy no carotid bruit Chest examination is clear to auscultation no crackles no wheezing Cardiac exam reveals regular heart sounds S1 and S2 no gallops no murmurs Abdomen is soft nontender no organomegaly with normal bowel sounds Extremity exam reveals no edema no cyanosis or clubbing Neurological examination reveals no gross focal deficits, patient is alert and oriented, cranial nerves II through XII are intact There is no focal sensory or motor deficits in the upper extremities or lower extremities at this time. Results CBC & Chem 7: 09/12/20 19:41 09/12/20 19:41 Labs: Abnormal Lab Results - Last 24 Hours (Table) 09/12/20 09/12/20 Range/Units 19:41 19:41 APTT 30.5 H (22.0-30.0) sec BUN 21 H (9-20) mg/dL Glucose 140 H (74-99) mg/dL Assessment and Plan Plan: 1. Transient ischemic attack, with right upper extremity weakness and numbness, symptoms resolved. 2. Underlying history of atrial fibrillation maintained on Xarelto. 3. Previous history of transient ischemic attack. 4. Underlying history of hypertension 5. Evidence of mild aneurysm of the aortic arch. At this time patient will be admitted to telemetry floor, echocardiogram and carotid Doppler were ordered Home medications reviewed and reordered Consultation for neurology requested. Will follow closely
--- NOTE | 2020-09-13 17:10 | P.CNNES ---
History of Present Illness Consult date: 09/13/20 Requesting physician: Tomasa Beavers Reason for Consult: stroke History of Present Illness: This is an 85-year-old right-handed gentleman with medical history of stroke and transient ischemic attack, atrial fibrillation on Xarelto, hyperlipidemia, myocardial infarction (5 years ago) who presented emergency department on for weakness and numbness of the left hand. Patient arrived to our facility at around 19:05. Patient is accompanied by his daughter (Raj). Patient stated that symptoms began around 4:45PM today while driving and he noticed numbness of left hand up to left forearm. Then shortly after while at the baseball game he noticed left hand weakness and he dropped a drink. He was seen by grandson and he notified her that his grandfather was slurring speech. By the time he arrived to the hospital his symptoms resolved. Patient denies any facial weakness, any visual disturbance, any weakness or numbness of lower extremities. He denies of missing his the Xarelto medication. Patient does follow up with Dr. Andersen for neurological management. 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 She notified family likely it was due to Atrial fibrillation. He said she was planing of having cardiology change his Xarelto to something else. Patient is not on any statins and not sure why. He was on aspirin 81 mg and he said that his car detailer Dr. Guidry discontinued it on 04/2020. Some of the patient's home medication includes Xarelto 50 mg, Lopressor, isosorbide, vitamin B12 at thousand micrograms, finasteride, lisinopril, nitroglycerin, Protonix. Of note per the patient's daughter the patient has episode of unresponsiveness for 2 years and is brief and has not had it for few years now. Denies any associated jerking of any extremities, eyes rolling up, foaming around the mouth. Patient denies tobacco use. She socially drinks alcohol and denies any illicit drug use. According to patient he's been on anticoagulation for 10 years. Some of the workup in the hospital consisted of: On initial presentation the patient's vitals: Blood pressure of 187/100, heart rate of 138, respiratory of 20, temperature of 97.8 Fahrenheit oral and pulse ox of 100% room air. CT of the head is reported as cerebral atrophy and chronic small vessel ischemia. No change. No acute abnormality. CT angiography of the head and neck was reported as there is mild atherosclerotic vascular disease. No evidence of hemodynamic stenosis. Small A1 segment of the left anterior cerebral artery is probably developing total. Mild aneurysm of the aortic arch. Carotid duplex reported as multiple thyroid abnormality are likely benign. There is at anterior grade flow in the vertebral arteries. The images and measurements suggest less than 20% stenosis in both internal carotid arteries. 2-D echo was reported as mild concentric left ventricular hypertrophy. Overall Lipitor solid function is mildly impaired with ejection fraction of 45-50% at. Basal inferior septal left ventricle wall motion anterior septal left ventricle wall hypokinetic. The CBC with differential seems unremarkable. Chemistry panel is unremarkable with a glucose of 140 slightly elevated but not too impressive 5. Creatinine of 1.18, sodium 137, calcium 9.5. Review of Systems Review of system: The 12 point system was reviewed and apparent positive and negative per HPI. 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 Last Myocardial Infarction Date:: 2015 History of Any Multi-Drug Resistant Organisms: None Reported Past Surgical History: Coronary Bypass/CABG, Heart Catheterization, Heart Catheterization With Stent, Hernia Repair, Tonsillectomy Additional Past Surgical History / Comment(s): Cardioversion x2, 2 vessel CABG approximately [address] [facility], PCI with stent 4 years ago, colonoscopy/benign polypectomy, hemorrhoidectomies, abdominal hernia repair, bilateral cataract removals, bilateral lasik surgery. Past Anesthesia/Blood Transfusion Reactions: No Reported Reaction Date of Last Stent Placement:: 2016 Smoking Status: Former smoker - Past Family History Father Family Medical History: Cancer Mother Family Medical History: Cancer Daughter(s) Family Medical History: Cancer Son(s) Family Medical History: Cancer Additional Family Medical History / Comment(s): Prostate cancer. Medications and Allergies Home Medications Medication Instructions Recorded Confirmed Type Finasteride [Proscar] 5 mg PO Q48H 12/31/13 09/12/20 History Cyanocobalamin (Vitamin B-12) 1,000 mcg PO W/SUPPER 02/01/20 09/12/20 History [Vitamin B-12] Isosorbide Mononitrate [Ismo] 10 mg PO BID 02/01/20 09/12/20 History Methylfolate 400mcg 400 mcg PO W/SUPPER 02/01/20 09/12/20 History Metoprolol Tartrate [Lopressor] 75 mg PO BID 02/01/20 09/12/20 History Nitroglycerin Sl Tabs [Nitrostat] 0.4 mg SUBLINGUAL Q5M PRN 02/01/20 09/12/20 History Ranolazine [Ranexa] 500 mg PO BID 02/01/20 09/12/20 History Rivaroxaban [Xarelto] 15 mg PO W/SUPPER 02/01/20 09/12/20 History Amoxicillin 500 mg PO QID 09/12/20 09/12/20 History Cholecalciferol [Vitamin D3 (25 50 mcg PO DAILY 09/12/20 09/12/20 History Mcg = 1000 Iu)] Losartan [Cozaar] 12.5 mg PO W/SUPPER 09/12/20 09/12/20 History Methylfolate 1000mcg 1,000 mcg PO DAILY 09/12/20 09/12/20 History Pantoprazole Sodium [Protonix] 20 mg PO W/SUPPER 09/12/20 09/12/20 History Zinc 50 mg PO DAILY 09/12/20 09/12/20 History Allergies Allergy/AdvReac Type Severity Reaction Status Date / Time No Known Allergies Allergy Verified 09/12/20 19:12 Physical Examination - Vital Signs Vital Signs: Vital Signs Temp Pulse Resp BP Pulse Ox 09/13/20 15:16 75 18 154/103 97 09/13/20 12:53 68 18 133/85 96 09/13/20 09:15 80 16 148/96 94 L 09/13/20 07:29 75 18 142/104 95 09/13/20 05:30 72 20 139/73 96 09/13/20 04:00 68 20 139/73 97 09/13/20 03:30 82 22 126/77 97 09/13/20 01:00 82 22 151/92 97 09/13/20 00:00 79 22 141/80 98 09/12/20 23:00 78 20 128/93 96 09/12/20 22:00 74 18 114/80 96 09/12/20 21:00 75 18 160/99 95 09/12/20 20:30 75 22 157/113 97 09/12/20 20:00 80 18 152/100 96 09/12/20 19:45 79 20 153/99 95 09/12/20 19:30 98.2 F 79 18 154/104 95 09/12/20 19:20 98.2 F 80 18 172/106 95 09/12/20 19:15 98.2 F 79 18 174/108 96 09/12/20 19:08 97.8 F 138 H 20 187/100 100 Intake and Output 09/13/20 09/13/20 09/13/20 06:59 14:59 22:59 Other: Weight 97.522 kg GENERAL: The patient is lying in bed and is not in acute distress. CHEST: The heart rate is regular rate rhythm. No murmurs to auscultation. No carotid bruit bilaterally. LUNG: Clear to auscultation bilaterally no wheezing noted throughout. Not labored breathing. ABDOMEN/GI: Bowel sounds present in all 4 quadrants. No tenderness to palpation throughout. NEUROLOGICAL: Higher mental function: The patient is awake, alert, oriented to self, place and time. Patient is following commands. No aphasia and no neglect. Cranial nerves: The pupils are round, equal and reactive to light and accommodation. Visual murguia are full to confrontation throughout. Extraocular movement is intact no nystagmus is noted. Facial sensation is normal to touch throughout. The facial strength is normal throughout. Hearing is hard of hearing bilaterally to hand rub (wears hearing aids). Tongue is midline and moved [id number] without any difficulty. No dysarthria is noted. Shoulder shrug is normal bilaterally. Motor: Gait is deferred. The strength is 5 over 5 throughout. Normal tone and bulk. Cerebellum: Normal finger to nose but there is dysmetria with heel to stevenson (left > right). Sensation: Sensation is normal to touch throughout. Reflexes (right/left): 2+ throughout upper but 1+ in lowers. Plantars are downgoing bilaterally. Results Coagulation study is PT of 11.9, INR 1.1, PTT of 30.5. Sifuentes virus PCR was not detected. - Laboratory Findings CBC and BMP: 09/12/20 19:41 09/12/20 19:41 Abnormal Lab Findings: Abnormal Labs 09/12/20 09/12/20 19:41 19:41 APTT 30.5 H BUN 21 H Glucose 140 H Assessment and Plan Assessment: * Transient ischemic attack (with symptoms of left hand/forearm numbness and weakness and slurring of speech). Seem embolic (especially with hx of Atrial fibrillation) * History of stroke (was notified he had brainstem stroke and stroke somewhere else by his Neurologist (Dr. Andersen) and on examination he had dysmetria with heel to stevenson. * History of atrial fibrillation on Xarelto * Hyperlipidemia * History of myocardial infarction * Severe hard of hearing bilaterally Plan: * CT of the head is reported as cerebral atrophy and chronic small vessel ischemia. No change. No acute abnormality. * CT angiography of the head and neck was reported as there is mild atherosclerotic vascular disease. No evidence of hemodynamic stenosis. Small A1 segment of the left anterior cerebral artery is probably developing total. Mild aneurysm of the aortic arch. * Carotid duplex reported as multiple thyroid abnormality are likely benign. Th ere is at anterior grade flow in the vertebral arteries. The images and measurements suggest less than 20% stenosis in both internal carotid arteries. * 2-D echo was reported as mild concentric left ventricular hypertrophy. Overall Lipitor solid function is mildly impaired with ejection fraction of 45-50% at. Basal inferior septal left ventricle wall motion anterior septal left ventricle wall hypokinetic. * The patient was restarted on the his home medication of Xarelto. I added ASA 81mg in addition. I will speak with cardiology tomorrow regarding changing Xarelto to Eliquis especially with stroke like symptoms. I started the patient on Lipitor 40 mg qhs for secondary stroke prophylaxis. * I ordered MRI of the brain. * Ordered TSH, lipid panel and HbA1c. * Placed the patient on every 4 hours neuro checks and is on continuous cardiac monitoring * Consulted physical therapy and occupation therapy. * Cardiology is consulted by the primary team. * Please allow permissive hypertensive for the first 24 hours for stroke. Manage if SBP >220 and DBP>110. * Will defer the rest of medical management to the primary team. The plan is discussed with the patient, his daughter (Raj) who is at bedside and his nurse. Thank you for the consultation. Aaron Robledo MD Neuro-Hospitalist. Time with Patient: Greater than 30
[2020-09-13] MEDS: ASPIRIN 81 MG PO SCH (17:16)
[2020-09-13] MEDS: lisinopriL 5 MG TAB PO SCH (17:16)
[2020-09-13] MEDS: PANTOPRAZOLE 40 MG TABLET PO SCH (17:16)
[2020-09-13] MEDS: RIVAROXABAN 15 MG TAB PO SCH (17:17)
[2020-09-13] MEDS ORDERED: ATORVASTATIN 40 MG TAB PO SCH (21:00)
[2020-09-14 03:52] VITALS: RESP 18
[2020-09-14 09:37] LABS: Basophils % (A) 0 %; Eosinophils # (A) 0.1 k/uL (0-0.7); Eosinophils % (A) 2 %; HCT 49.3 % (39.0-53.0); HGB 16.6 gm/dL (13.0-17.5); Lymphocytes # (A) 1.2 k/uL (1.0-4.8); Lymphocytes % (A) 20 %; MCH 33.6 pg (25.0-35.0); MCHC 33.7 g/dL (31.0-37.0); MCV 99.9 fL (80.0-100.0); Mean Platelet Volume 6.7; Monocytes # (A) 0.4 k/uL (0-1.0); Monocytes % (A) 6 %; Neutrophils # (A) 4.2 k/uL (1.3-7.7); Neutrophils % (A) 71 %; Platelet Count 223 k/uL (150-450); RBC 4.94 m/uL (4.30-5.90); RDW 12.7 % (11.5-15.5); WBC 5.9 k/uL (3.8-10.6)
[2020-09-14] MEDS: ASPIRIN 81 MG PO SCH (09:37)
[2020-09-14] MEDS: RANOLAZINE 500 MG TAB.ER.12H PO SCH (09:37)
[2020-09-14] MEDS: METOPROLOL TARTRATE 25 MG TAB PO SCH (09:41)
[2020-09-14] MEDS: ISOSORBIDE MONONITRATE 10 MG TAB PO SCH (09:42)
[2020-09-14 10:00] LABS: ALT <6 U/L (4-49); AST 27 U/L (17-59); African American GFR (CKD) 62 (>60 ml/min/1.73 sqM); Albumin 4.1 g/dL (3.5-5.0); Alkaline Phosphatase 95 U/L (38-126); Anion Gap 4 mmol/L; Blood Urea Nitrogen 19 mg/dL (9-20); Calcium 9.4 mg/dL (8.4-10.2); Carbon Dioxide 31 mmol/L (22-30); Chloride 105 mmol/L (98-107); Glucose 94 mg/dL (74-99); Non-African American GFR(CKD) 54 (>60 ml/min/1.73 sqM); Potassium 5.1 mmol/L (3.5-5.1); Sodium 140 mmol/L (137-145); Total Protein 6.8 g/dL (6.3-8.2)
--- NOTE | 2020-09-14 10:57 | P.CRDCN ---
History of Present Illness History of present illness: HISTORY OF PRESENTING ILLNESS This is a pleasant 85-year-old male past medical history significant for coronary artery disease s/p CABG 2016 and NSTEMI stenting of first diagonal in 2016, hypertension, hyperlipidemia, chronic persistent atrial fibrillation on Xarelto 15mg daily, TIA/CVA. He follows in the office with Dr. Guidry. We have been asked to see in consultation for abnormal echocardiogram and anticoagulation. Patient states he has a home in [place], he was driving down yesterday per his request and some guarding and started to have left-sided numbness. Prior to his friends PR in 2016, he did have symptoms of left-sided numbness and was concerned about another PR. When he was at the baseball game he continued to have left-sided numbness which progressed to weakness and he could not keep anything in his left hand and continued to drop his popcorn and drink. When he arrived home he started to have an unsteady gait and decided to present to the emergency department. He is a non-diabetic and non-smoker. He states he is compliant with his medications. Current home cardiac medications include losartan 12.5 mg daily, Xarelto 15 mg daily, Toprol titrate 75 mg twice daily, Imdur 10 mg twice a day, Ranexa 500mg BID. Patient is not sure if he takes atorvastatin. When seen in the office in 2020, patient was on atorvastatin 40mg daily DIAGNOSTICS CT brain: cerebral atrophy, chronic small vessel ischemia. No change from prior. No acute intracranial abnormalities. EKG reveals atrial fibrillation, heart rate 83, no significant STT wave abnormalities. Telemetry tracings indicate atrial fibrillation with controlled ventricular rates Chest xray some atelectasis left lung base, no acute cardiopulmonary abnormality. CT angiogram revealed mild atherosclerotic vascular disease, no evidence of hemodynamic stenosis, small A1 segment of the left anterior cerebral arteries probably to home and told. Mild aneurysm of aortic arch Carotid Doppler studymultiple thyroid abnormalities are likely benign. Less than 20% stenosis in both internal carotid arteries Echocardiogram reveals left ventricular systolic function is mildly impaired with an EF between 45-50%, basal inferior septal and anterior septal LV wall is hypokinetic, mild aortic regurgitation, mitral regurgitation, mild tricuspid regurgitation Prior echocardiogram in the office on 03/2020 EF is 50-55%, inferoseptal hypokinesia. Mild concentric LVH, mild AR, mild MR, mild TR Cardiac catheterization 02/2017 in [place] revealed- Patent HANSEN to LAD. VG to diagonal occluded. First diagonal was stented, Cx and RCA had minor non- obstructive CAD. Was totally occluded causin NSTEMI. Laboratory reviewed, CBC unremarkable, sodium 140, potassium 5.1, serum creati nine 1.21, BUN 19, GFR 54, troponin negative 1, TSH within normal limits, COVID-19 negative REVIEW OF SYSTEMS At the time of my exam: CONSTITUTIONAL: Denies fever or chills. CARDIOVASCULAR: Denies chest pain, shortness of breath, orthopnea, PND or palpitations. RESPIRATORY: Denies cough. GASTROINTESTINAL: Denies abdominal pain, diarrhea, constipation, nausea or vomiting. MUSCULOSKELETAL: Denies myalgias. NEUROLOGIC: +left sided numbness, +left sided weakness. ENDOCRINE: Denies fatigue, weight change, polydipsia or polyurina. GENITOURINARY: Denies burning, hematuria or urgency with micturation. HEMATOLOGIC: Denies history of anemia or bleeding. PHYSICAL EXAMINATION CONSTITUTIONAL: No apparent distress. HEENT: Head is normocephalic. Pupils are equal, round. Sclerae anicteric. Mucous membranes of the mouth are moist. No JVD. No carotid bruit. CHEST EXAMINATION: Lungs are clear to auscultation. No chest wall tenderness is noted on palpation or with deep breathing. HEART EXAMINATION: Irregular rate and rhythm. S1, S2 heard. No murmurs, gallops or rub. ABDOMEN: Soft, nontender. Positive bowel sounds. EXTREMITIES: 2+ peripheral pulses, no lower extremity edema and no calf tender ness. SKIN: intact NEUROLOGIC EXAMINATION: Patient is awake, alert and oriented x3. ASSESSMENT Left sided numbness and weakness Echocardiogram with EF between 45-50% Chronic Persistent atrial fibrillation -[id number] score 6, on Xarelto 15mg at home Coronary artery disease s/p CABG in [place] in 2016 History of CVA/TIA Hypertension Hyperlipidemia PLAN -Patient undergoing MRI brain today -Patient's GFR 55, recommend increasing Xarelto to 20mg for thromboembolism/stroke prophylaxis -Continue home losartan 12.5 mg daily, metoprolol tartrate 75 mg twice daily -Continue atorvastatin 40mg daily -Follow up with Dr. Guidry in the outpatient office for further follow up -No further testing from cardiology perspective Nurse Practitioner note has been reviewed, I agree with a documented findings and plan of care. Patient was seen and examined. 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 Last Myocardial Infarction Date:: 2015 History of Any Multi-Drug Resistant Organisms: None Reported Past Surgical History: Coronary Bypass/CABG, Heart Catheterization, Heart Catheterization With Stent, Hernia Repair, Tonsillectomy Additional Past Surgical History / Comment(s): Cardioversion x2, 2 vessel CABG approximately 5 yrs ago in [facility], PCI with stent 4 years ago, colonoscopy/benign polypectomy, hemorrhoidectomies, abdominal hernia repair, bilateral cataract removals, bilateral lasik surgery. Past Anesthesia/Blood Transfusion Reactions: No Reported Reaction Date of Last Stent Placement:: 2016 Smoking Status: Former smoker - Past Family History Father Family Medical History: Cancer Mother Family Medical History: Cancer Daughter(s) Family Medical History: Cancer Son(s) Family Medical History: Cancer Additional Family Medical History / Comment(s): Prostate cancer. Medications and Allergies Home Medications Medication Instructions Recorded Confirmed Type Finasteride [Proscar] 5 mg PO Q48H 12/31/13 09/12/20 History Cyanocobalamin (Vitamin B-12) 1,000 mcg PO W/SUPPER 02/01/20 09/12/20 History [Vitamin B-12] Isosorbide Mononitrate [Ismo] 10 mg PO BID 02/01/20 09/12/20 History Methylfolate 400mcg 400 mcg PO W/SUPPER 02/01/20 09/12/20 History Metoprolol Tartrate [Lopressor] 75 mg PO BID 02/01/20 09/12/20 History Nitroglycerin Sl Tabs [Nitrostat] 0.4 mg SUBLINGUAL Q5M PRN 02/01/20 09/12/20 History Ranolazine [Ranexa] 500 mg PO BID 02/01/20 09/12/20 History Rivaroxaban [Xarelto] 15 mg PO W/SUPPER 02/01/20 09/12/20 History Amoxicillin 500 mg PO QID 09/12/20 09/12/20 History Cholecalciferol [Vitamin D3 (25 50 mcg PO DAILY 09/12/20 09/12/20 History Mcg = 1000 Iu)] Losartan [Cozaar] 12.5 mg PO W/SUPPER 09/12/20 09/12/20 History Methylfolate 1000mcg 1,000 mcg PO DAILY 09/12/20 09/12/20 History Pantoprazole Sodium [Protonix] 20 mg PO W/SUPPER 09/12/20 09/12/20 History Zinc 50 mg PO DAILY 09/12/20 09/12/20 History Allergies Allergy/AdvReac Type Severity Reaction Status Date / Time No Known Allergies Allergy Verified 09/12/20 19:12 Physical Exam Vitals: Vital Signs Temp Pulse Pulse Resp BP BP Pulse Ox 09/14/20 03:30 97.8 F 77 18 138/96 95 09/13/20 23:25 97.8 F 78 17 133/87 97 09/13/20 20:00 97.8 F 69 19 161/91 96 09/13/20 19:37 96 09/13/20 16:44 97.4 F L 71 18 173/108 96 09/13/20 16:05 97.8 F 75 18 158/103 98 09/13/20 15:16 75 18 154/103 97 09/13/20 12:53 68 18 133/85 96 09/13/20 09:15 80 16 148/96 94 L Intake and Output 09/13/20 09/14/20 09/14/20 22:59 06:59 14:59 Other: Voiding Method Toilet Toilet # Voids 2 1 Weight 97.522 kg Results 09/14/20 08:22 09/14/20 08:22 Current Medications Generic Name Dose Route Start Last Admin Trade Name Freq PRN Reason Stop Dose Admin Aspirin 81 mg 09/13/20 17:00 09/13/20 17:16 Aspirin 81 Mg PO 81 mg DAILY CHANTE Administration Atorvastatin Calcium 40 mg 09/13/20 21:00 09/13/20 20:12 Atorvastatin 40 Mg Tab PO 40 mg HS CHANTE Administration Finasteride 5 mg 09/14/20 17:30 Finasteride 5 Mg Tab PO Q48H CHANTE Isosorbide Mononitrate 10 mg 09/12/20 22:00 09/13/20 21:00 Isosorbide Mononitrate 10 Mg Tab PO 10 mg BID HCANTE Administration Lisinopril 5 mg 09/12/20 22:00 09/13/20 17:16 Lisinopril 5 Mg Tab PO 5 mg W/SUPPER CHANTE Administration Metoprolol Tartrate 75 mg 09/12/20 22:00 09/13/20 20:12 Metoprolol Tartrate 25 Mg Tab PO 75 mg BID CHANTE Administration Naloxone HCl 0.2 mg 09/12/20 21:34 Naloxone 0.4 Mg/Ml 1 Ml Vial IV Q2M PRN Opioid Reversal Pantoprazole Sodium 40 mg 09/12/20 22:00 09/13/20 17:16 Pantoprazole 40 Mg Tablet PO 40 mg W/SUPPER CHANTE Administration Ranolazine 500 mg 09/13/20 09:00 09/13/20 20:12 Ranolazine 500 Mg Tab.Er.12h PO 500 mg BID CHANTE Administration Rivaroxaban 20 mg 09/14/20 17:30 Rivaroxaban 20 Mg Tab PO W/SUPPER CHANTE Protocol Intake and Output 09/13/20 09/14/20 09/14/20 22:59 06:59 14:59 Other: Voiding Method Toilet Toilet # Voids 2 1 Weight 97.522 kg 09/12/20 19:41 09/12/20 19:41
[2020-09-14 13:00] VITALS: TEMP 98.2
--- NOTE | 2020-09-14 15:23 | P.PN ---
Subjective Progress Note Date: 09/14/20 The patient seen at bedside and he stated he is doing about the same today but her syncope. Denies any further weakness of the left upper extremity. Denies any slurring the speech. He feels is back to baseline. Objective - Vital Signs Vital signs: Vital Signs Temp 98.2 F 09/14/20 12:00 Pulse 69 09/14/20 12:00 Resp 18 09/14/20 12:00 BP 135/72 09/14/20 12:00 Pulse Ox 95 09/14/20 12:00 Intake & Output 09/13/20 09/14/20 09/14/20 18:59 06:59 18:59 Weight 97.522 kg Other: Voiding Method Toilet # Voids 1 - Exam GENERAL: The patient is lying in bed and is not in acute distress. NEUROLOGICAL: Higher mental function: The patient is awake, alert, oriented to self, place and time. Patient is following commands. No aphasia and no neglect. Cranial nerves: The pupils are round, equal and reactive to light and accommodation. Visual murguia are full to confrontation throughout. Extraocular movement is intact no nystagmus is noted. Facial sensation is normal to touch throughout. The facial strength is normal throughout. Hearing is hard of hearing bilaterally to hand rub (wears hearing aids). Tongue is midline and moved [id number] without any difficulty. No dysarthria is noted. Shoulder shrug is normal bilaterally. Motor: Gait is deferred. The strength is 5 over 5 throughout. Normal tone and bulk. Cerebellum: Normal finger to nose but there is dysmetria with heel to stevenson (left > right). Sensation: Sensation is normal to touch throughout. Reflexes (right/left): 2+ throughout upper but 1+ in lowers. Plantars are downgoing bilaterally. - Labs CBC & Chem 7: 09/14/20 08:22 09/14/20 08:22 Labs: Abnormal Lab Results - Last 24 Hours (Table) 09/14/20 Range/Units 08:22 Carbon Dioxide 31 H (22-30) mmol/L Assessment and Plan Assessment: * Transient ischemic attack (with symptoms of left hand/forearm numbness and weakness and slurring of speech). Seem embolic (especially with hx of Atrial fibrillation) * History of stroke (was notified he had brainstem stroke and stroke somewhere else by his Neurologist (Dr. Andersen) and on examination he had dysmetria with heel to stevenson. * History of atrial fibrillation on Xarelto * Hyperlipidemia * History of myocardial infarction * Severe hard of hearing bilaterally Plan: * CT of the head is reported as cerebral atrophy and chronic small vessel ischemia. No change. No acute abnormality. * CT angiography of the head and neck was reported as there is mild atherosclerotic vascular disease. No evidence of hemodynamic stenosis. Small A1 segment of the left anterior cerebral artery is probably developing total. Mild aneurysm of the aortic arch. * Carotid duplex reported as multiple thyroid abnormality are likely benign. There is at anterior grade flow in the vertebral arteries. The images and measurements suggest less than 20% stenosis in both internal carotid arteries. * 2-D echo was reported as mild concentric left ventricular hypertrophy. Overall Lipitor solid function is mildly impaired with ejection fraction of 45-50% at. Basal inferior septal left ventricle wall motion anterior septal left ventricle wall hypokinetic. * TSH is 2.67 which is considered normal. * The patient was restarted on the his home medication of Xarelto. Per cardiology his home on Xarelto dose was subtherapeutic for atrial fibrillation and possibly he was on a lower dose because of the lower GFR so the increases Xarelto to 20 mg daily for thromboembolism/stroke prophylaxis. I stopped aspirin 81 mg daily. Continue Lipitor 40 mg qhs for secondary stroke prophylaxis * MRI of the brain is done and pending final report. I personally reviewed the MRI and I do not see any acute or subacute ischemia. * Pending HbA1c. * Placed the patient on every 4 hours neuro checks and is on continuous cardiac monitoring * Physical therapy and occupation therapy are consulted. * Cardiology is consulted by the primary team. * Will defer the rest of medical management to the primary team. If the MRI Brain is negative for acute or subacute ischemia. He is clear from neurological stand point. He needs to follow-up with his Neurologist (Dr. Matthew Andersen) as outpatient within 1-2 weeks. The plan is discussed with the patient, his daughter (Raj) who is at bedside and his nurse. Aaron Robledo MD Neuro-Hospitalist. Time with Patient: Less than 30
--- NOTE | 2020-09-14 15:25 | P.DS ---
Providers Date of admission: 09/12/20 21:34 Expected date of discharge: 09/14/20 Attending physician: Tomasa Beavers Consults: 09/13/20 12:21 Consult Physician Routine Consulting Provider: Aaron Robledo Consult Reason/Comments: CVA Do you want consulting provider notified?: Yes 09/13/20 12:26 Consult Physician Routine Consulting Provider: Tangela Baumann Consult Reason/Comments: CVA, abnormal echo Do you want consulting provider notified?: Yes Primary care physician: Eve Swartz Hospital Course: Discharge diagnosis 1. Transient ischemic attack, with right upper extremity weakness and numbness, symptoms resolved. 2. Underlying history of atrial fibrillation maintained on Xarelto. 3. Previous history of transient ischemic attack. 4. Underlying history of hypertension 5. Evidence of mild aneurysm of the aortic arch. 6. Thyroid abnormality seen on carotid Doppler. Patient will need follow-up outpatient with PCP Hospital course Gokul Petit, is an 85-year-old male who presented to [facility] emergency room after having an episode of weakness and numbness involving his right upper extremity, patient was also complaining of blurred vision and slurred speech, symptoms lasted about 2 hours, and resolved on his way to emergency room. He has known history of hypertension, atrial fib rillation and history of previous TIA he is followed by neurologist Dr. Dubois as outpatient. Patient was seen and examined in the emergency room, at this time he is alert and oriented 3 in no apparent distress, he states that all his symptoms have now resolved and has not recurred. Echocardiogram and carotid Doppler were ordered, neurology consultation was requested. On 09/14/2020 patient is alert and oriented 3. No new neurological symptoms. Discussed case with cardiology team recommended increasing Xarelto dose to 20 mg daily. MRI of the brain pending. 2-D echo was completed and reviewed per cardiology team no further workup will follow-up outpatient for further management. Awaiting final neurological clearance prior to discharge an MRI results. At this time patient denies chest pain or shortness breath. Patient denies nausea vomiting or diarrhea. Patient denies any urinary burning or frequency Patient Condition at Discharge: Stable Plan - Discharge Summary Discharge Rx Participant: No New Discharge Prescriptions: New Atorvastatin [Lipitor] 40 mg PO HS 30 Days #30 tab Rivaroxaban [Xarelto] 20 mg PO W/SUPPER 30 Days #30 tab Continue Finasteride [Proscar] 5 mg PO Q48H Methylfolate 400mcg 400 mcg PO W/SUPPER Ranolazine [Ranexa] 500 mg PO BID Nitroglycerin Sl Tabs [Nitrostat] 0.4 mg SUBLINGUAL Q5M PRN PRN Reason: Chest Pain Metoprolol Tartrate [Lopressor] 75 mg PO BID Isosorbide Mononitrate [Ismo] 10 mg PO BID Cyanocobalamin (Vitamin B-12) [Vitamin B-12] 1,000 mcg PO W/SUPPER Pantoprazole Sodium [Protonix] 20 mg PO W/SUPPER Amoxicillin 500 mg PO QID Methylfolate 1000mcg 1,000 mcg PO DAILY Zinc 50 mg PO DAILY Cholecalciferol [Vitamin D3 (25 Mcg = 1000 Iu)] 50 mcg PO DAILY Losartan [Cozaar] 12.5 mg PO W/SUPPER Discontinued Rivaroxaban [Xarelto] 15 mg PO W/SUPPER Discharge Medication List Finasteride [Proscar] 5 mg PO Q48H 12/31/13 [History] Cyanocobalamin (Vitamin B-12) [Vitamin B-12] 1,000 mcg PO W/SUPPER 02/01/20 [History] Isosorbide Mononitrate [Ismo] 10 mg PO BID 02/01/20 [History] Methylfolate 400mcg 400 mcg PO W/SUPPER 02/01/20 [History] Metoprolol Tartrate [Lopressor] 75 mg PO BID 02/01/20 [History] Nitroglycerin Sl Tabs [Nitrostat] 0.4 mg SUBLINGUAL Q5M PRN 02/01/20 [History] Ranolazine [Ranexa] 500 mg PO BID 02/01/20 [History] Amoxicillin 500 mg PO QID 09/12/20 [History] Cholecalciferol [Vitamin D3 (25 Mcg = 1000 Iu)] 50 mcg PO DAILY 09/12/20 [History] Losartan [Cozaar] 12.5 mg PO W/SUPPER 09/12/20 [History] Methylfolate 1000mcg 1,000 mcg PO DAILY 09/12/20 [History] Pantoprazole Sodium [Protonix] 20 mg PO W/SUPPER 09/12/20 [History] Zinc 50 mg PO DAILY 09/12/20 [History] Atorvastatin [Lipitor] 40 mg PO HS 30 Days #30 tab 09/14/20 [Rx] Rivaroxaban [Xarelto] 20 mg PO W/SUPPER 30 Days #30 tab 09/14/20 [Rx] Follow up Appointment(s)/Referral(s): Eduard Guidry MD [STAFF PHYSICIAN] - 2 Weeks Eve Swartz MD [Primary Care Provider] - 1-2 days Activity/Diet/Wound Care/Special Instructions: Activity as tolerated Diet heart healthy Discharge Disposition: HOME SELF-CARE
--- NOTE | 2020-09-14 15:30 | MR ---
EXAMINATION TYPE: MR brain wo con DATE OF EXAM: 09/14/2020 COMPARISON: None HISTORY: Left handed weakness/numbness. CONTRAST: Performed utilizing 0 mL intravenous Gadavist gadolinium contrast. TECHNIQUE: Multiplanar, multiecho imaging on a 3.0 Kathrin magnet is performed through the brain. Stud y is performed within 24 hours of arrival to the hospital. The craniovertebral junction is normal. The pituitary is normal. Diffusion-weighted imaging is performed. No abnormal hyperintensity is present to suggest an acute i ntracranial infarct or acute ischemic change. Patchy to confluent periventricular white matter hyperintensities are present, likely on the basis of chronic white matter ischemic change. Findings are nonspecific and multiple sclerosis and vasculitis could be considered. Ventricles and sulci are prominent for the patient age. IMPRESSIONS: 1. Atrophy with periventricular white matter ischemic changes.
[2020-09-14] MEDS ORDERED: FINASTERIDE 5 MG TAB PO SCH (17:30)
[2020-09-14] MEDS ORDERED: RIVAROXABAN 20 MG TAB PO SCH (17:30)
[2020-09-14 17:35] VITALS: BP 158/97; PULSE 80
[2020-09-14] MEDS: lisinopriL 5 MG TAB PO SCH (17:36)
[2020-09-14] MEDS: PANTOPRAZOLE 40 MG TABLET PO SCH (17:36)
[2020-09-14 17:56] LABS: Hemoglobin A1C 5.6 % (4.0-6.0)
[2020-09-14 20:16] LABS: Chol/HDL Ratio 4.39; Cholesterol 180 mg/dL (0-200); LDL Cholesterol,Calculated 113.2 mg/dL (0.0-131.0)
== END 2020-09-14 18:10 | disposition home or self-care (01) ==
LOC: EC 19:05 → 1SOBS 21:34 → 6NMEDSUR 22:10 → 3SCARD 09-13 15:25
PROVIDERS: ADMIT Internal Medicine; ATTEND Internal Medicine
DX: G45.9 Transient cerebral ischemic attack, unspecified (principal); I48.19 Other persistent atrial fibrillation; E78.5 Hyperlipidemia, unspecified; I25.2 Old myocardial infarction; Z20.822 Contact with and (suspected) exposure to COVID-19; I11.9 Hypertensive heart disease without heart failure; I25.10 Atherosclerotic heart disease of native coronary artery without angina pectoris; J44.9 Chronic obstructive pulmonary disease, unspecified; K21.9 Gastro-esophageal reflux disease without esophagitis; J98.11 Atelectasis; R47.01 Aphasia; N40.0 Benign prostatic hyperplasia without lower urinary tract symptoms; I83.90 Asymptomatic varicose veins of unspecified lower extremity; G89.29 Other chronic pain; M25.512 Pain in left shoulder; H91.93 Unspecified hearing loss, bilateral; Z79.01 Long term (current) use of anticoagulants; Z79.899 Other long term (current) drug therapy; Z86.73 Personal history of transient ischemic attack (TIA), and cerebral infarction without residual deficits; Z87.19 Personal history of other diseases of the digestive system; Z87.01 Personal history of pneumonia (recurrent); Z87.891 Personal history of nicotine dependence; Z95.1 Presence of aortocoronary bypass graft; Z95.5 Presence of coronary angioplasty implant and graft; Z86.010 Personal history of colon polyps; Z98.41 Cataract extraction status, right eye; Z98.42 Cataract extraction status, left eye; Z80.9 Family history of malignant neoplasm, unspecified; Z80.42 Family history of malignant neoplasm of prostate
CPT/HCPCS: 99285; 36415; 94760 ×2; 93005; 97161; 97165; 80061; 80053 ×2; 84443; 84484; 85025 ×2; 85610; 85730; 83036; 87635; 71046; 93880; 70496; 70450; 70498; 70551; G0378 ×3; C8929; S0138 ×2; Q9950; Q9967; 93306

== ENCOUNTER → 2021-10-19 | Outpatient (CLI) | payer MEDICARE ==
--- NOTE | 2021-10-19 14:06 | EEG ---
ELECTROENCEPHALOGRAM REPORT DATE OF SERVICE: 10/19/2021 PREAMBLE: This is an 86-year-old male with episode of confusion. He was admitted to the hospital in June 2021. This study is performed to evaluate for any epileptiform activity. EEG FINDINGS: This is a 21 channel digital EEG recorded with video component, utilizing 10/20 international system with referential and bipolar montages. Background consists of well-developed, moderately well regulated, mixed frequencies of 8 hertz alpha, with some 7 hertz theta activity seen in bihemispheric region. Background seems to be slightly reactive to eye opening and closing. Photic driving response was not seen. Mild drowsiness was seen with appearance of slower frequency, theta rhythm in bihemispheric region. Deeper stages of sleep were not seen. No definitive focal or generalized epileptiform activity was seen. IMPRESSION: This is a borderline EEG because of minimal background slowing. This could be considered normal for patient's age, although mild encephalopathy cannot be ruled out. Clinical correlation recommended. No obvious epileptiform activity was seen. MMODL / IJN: [id number] /
== END | disposition home or self-care (01) ==
LOC: NEUROMAIN 08:07
PROVIDERS: ATTEND Student in an Organized Health Care Education/Training Program
DX: R41.0 Disorientation, unspecified (principal)
CPT/HCPCS: 95816

== ENCOUNTER 2022-03-07 12:03 | Emergency (ER) | payer MEDICARE ==
--- NOTE | 2022-03-07 12:35 | ED ---
General Adult HPI - General Chief complaint: Altered Mental Status Stated complaint: confusion, headache Time Seen by Provider: 03/07/22 12:17 Source: patient Mode of arrival: ambulatory Limitations: no limitations - History of Present Illness Initial comments: This patient is an 86-year-old man who is brought to have evaluation related to right temporal headache and altered mental status. History is from the patient and his daughter. Patient relates that he had a prostate biopsy yesterday and his medications including Xarelto and Plavix were supposed to be held for the biopsy. The patient was receiving Lovenox as an anticoagulant to bridge him through the procedure. The patient's daughter is concerned that he may have been receiving all of these medications and therefore is at risk of having some bleeding. Patient woke up at 6 AM today with right temporal headache and he states that it is completely atypical to get headaches. An addition he spilled his bottle of medication and then was not able to pick them up and he was also somewhat disoriented early today. Patient states that he is feeling better in that respect he is not feeling disoriented now. He denies weakness or numbness of the extremities, change in speech or swallowing. He has not noted fevers or chills. No change in urination other than noting trace of blood today. No change in bowel movements today. No abdominal or back pain. Onset/Timin -: hour(s) Location: head Radiation: non-radiation Quality: aching Consistency: constant Improves with: none Worsens with: none Associated Symptoms: confusion Treatments Prior to Arrival: other (Tylenol) - Related Data Home Medications Medication Instructions Recorded Confirmed Finasteride [Proscar] 5 mg PO Q48H 12/31/13 03/07/22 Isosorbide Mononitrate [Ismo] 10 mg PO BID 02/01/20 03/07/22 Metoprolol Tartrate [Lopressor] 75 mg PO BID 02/01/20 03/07/22 Ranolazine [Ranexa] 500 mg PO BID 02/01/20 03/07/22 Losartan [Cozaar] 12.5 mg PO W/SUPPER 09/12/20 03/07/22 Pantoprazole Sodium [Protonix] 20 mg PO W/SUPPER 09/12/20 03/07/22 Furosemide [Lasix] 20 mg PO DAILY 03/07/22 03/07/22 Rivaroxaban [Xarelto] 15 mg PO W/SUPPER 03/07/22 03/07/22 Previous Rx's Medication Instructions Recorded Atorvastatin [Lipitor] 80 mg PO HS 30 Days #30 tab 07/12/21 Clopidogrel [Plavix] 75 mg PO DAILY 30 Days #30 tab 07/12/21 Allergies Allergy/AdvReac Type Severity Reaction Status Date / Time No Known Allergies Allergy Verified 03/07/22 14:31 Review of Systems ROS Statement: Those systems with pertinent positive or pertinent negative responses have been documented in the HPI. ROS Other: All systems not noted in ROS Statement are negative. Constitutional: Denies: fever, chills, weakness Eyes: Denies: vision change ENT: Denies: ear pain Respiratory: Denies: cough, dyspnea Cardiovascular: Denies: chest pain, palpitations, syncope Gastrointestinal: Denies: abdominal pain, vomiting, diarrhea Genitourinary: Reports: hematuria. Denies: dysuria, frequency, discharge, testicular pain Musculoskeletal: Denies: back pain Skin: Denies: rash Neurological: Reports: as per HPI, headache, confusion. Denies: weakness, numbness, paresthesias Past Medical History Past Medical History: Atrial Fibrillation, Coronary Artery Disease (CAD), COPD, CVA/TIA, GERD/Reflux, Hyperlipidemia, Hypertension, Myocardial Infarction (AL), Pneumonia, Prostate Disorder, Vascular Disorder Additional Past Medical History / Comment(s): TIAs, 3 small blood clots in brain/one on brainstem/aphasia issues at times/seeing neurologist, bilateral feet neuropathy, pt recently on antibiotics for diarrhea, bronchitis, diverticular disease, benign colon polyp, varicosities, BPH, slightly elevated P SA, chronic L shoulder pain, sinus issues. Last Myocardial Infarction Date:: 2015 History of Any Multi-Drug Resistant Organisms: None Reported Past Surgical History: Coronary Bypass/CABG, Heart Catheterization, Heart Catheterization With Stent, Hernia Repair, Tonsillectomy Additional Past Surgical History / Comment(s): Cardioversion x2, 2 vessel CABG approximately 2015 in [facility], PCI with stent in 2016, colonoscopy/benign polypectomy, hemorrhoidectomies, abdominal hernia repair, bilateral cataract removals, bilateral lasik surgery. Past Anesthesia/Blood Transfusion Reactions: No Reported Reaction Date of Last Stent Placement:: 2016 Past Psychological History: No Psychological Hx Reported Smoking Status: Former smoker Past Alcohol Use History: None Reported Past Drug Use History: None Reported - Past Family History Father Family Medical History: Cancer Mother Family Medical History: Cancer Daughter(s) Family Medical History: Cancer Son(s) Family Medical History: Cancer Additional Family Medical History / Comment(s): Prostate cancer. General Exam Limitations: no limitations General appearance: alert, in no apparent distress Head exam: Present: atraumatic, normocephalic Eye exam: Present: normal appearance. Absent: scleral icterus, conjunctival injection ENT exam: Present: normal oropharynx Neck exam: Present: normal inspection Respiratory exam: Present: normal lung sounds bilaterally. Absent: respiratory distress, wheezes, rales, rhonchi, stridor Cardiovascular Exam: Present: regular rate, irregular rhythm, normal heart sounds. Absent: systolic murmur, diastolic murmur, rubs, gallop GI/Abdominal exam: Present: soft. Absent: distended, tenderness, guarding, rebound, rigid, mass Extremities exam: Present: normal inspection, normal capillary refill Neurological exam: Present: alert, oriented X3, CN II-XII intact. Absent: motor sensory deficit Skin exam: Present: warm, dry, intact, normal color. Absent: rash Course Vital Signs 03/07/22 03/07/22 12:11 15:05 Temperature 97.1 F L 97.4 F L Pulse Rate 104 H 83 Respiratory 20 18 Rate Blood Pressure 146/94 139/98 O2 Sat by Pulse 99 96 Oximetry EKG Findings - EKG Results: EKG: interpreted by ERMD, normal axis, normal QRS, normal ST/T EKG shows: atrial fibrillation (Rate 73 bpm) Medical Decision Making - Lab Data Result diagrams: 03/07/22 12:56 03/07/22 12:56 Lab Results 03/07/22 03/07/22 03/07/22 Range/Units 12:56 12:56 12:56 WBC 6.7 (3.8-10.6) k/uL RBC 4.36 (4.30-5.90) m/uL Hgb 14.4 (13.0-17.5) gm/dL Hct 43.4 (39.0-53.0) % MCV 99.6 (80.0-100.0) fL MCH 33.1 (25.0-35.0) pg MCHC 33.3 (31.0-37.0) g/dL RDW 13.4 (11.5-15.5) % Plt Count 212 (150-450) k/uL MPV 7.9 Neutrophils % 78 % Lymphocytes % 13 % Monocytes % 6 % Eosinophils % 0 % Basophils % 0 % Neutrophils # 5.2 (1.3-7.7) k/uL Lymphocytes # 0.9 L (1.0-4.8) k/uL Monocytes # 0.4 (0-1.0) k/uL Eosinophils # 0.0 (0-0.7) k/uL Basophils # 0.0 (0-0.2) k/uL PT 11.8 (9.0-12.0) sec INR 1.1 (<1.2) APTT 29.2 (22.0-30.0) sec Sodium 138 (137-145) mmol/L Potassium 4.4 (3.5-5.1) mmol/L Chloride 105 (98-107) mmol/L Carbon Dioxide 27 (22-30) mmol/L Anion Gap 6 mmol/L BUN 22 H (9-20) mg/dL Creatinine 1.11 (0.66-1.25) mg/dL Est GFR (CKD-EPI)AfAm 68 (>60 ml/min/1.73 sqM) Est GFR (CKD-EPI)NonAf 59 (>60 ml/min/1.73 sqM) Glucose 80 (74-99) mg/dL Calcium 9.0 (8.4-10.2) mg/dL Total Bilirubin 1.0 (0.2-1.3) mg/dL AST 48 (17-59) U/L ALT 24 (4-49) U/L Alkaline Phosphatase 114 (38-126) U/L Troponin I (0.000-0.034) ng/mL Total Protein 6.4 (6.3-8.2) g/dL Albumin 3.7 (3.5-5.0) g/dL 03/07/22 Range/Units 12:56 WBC (3.8-10.6) k/uL RBC (4.30-5.90) m/uL Hgb (13.0-17.5) gm/dL Hct (39.0-53.0) % MCV (80.0-100.0) fL MCH (25.0-35.0) pg MCHC (31.0-37.0) g/dL RDW (11.5-15.5) % Plt Count (150-450) k/uL MPV Neutrophils % % Lymphocytes % % Monocytes % % Eosinophils % % Basophils % % Neutrophils # (1.3-7.7) k/uL Lymphocytes # (1.0-4.8) k/uL Monocytes # (0-1.0) k/uL Eosinophils # (0-0.7) k/uL Basophils # (0-0.2) k/uL PT (9.0-12.0) sec INR (<1.2) APTT (22.0-30.0) sec Sodium (137-145) mmol/L Potassium (3.5-5.1) mmol/L Chloride (98-107) mmol/L Carbon Dioxide (22-30) mmol/L Anion Gap mmol/L BUN (9-20) mg/dL Creatinine (0.66-1.25) mg/dL Est GFR (CKD-EPI)AfAm (>60 ml/min/1.73 sqM) Est GFR (CKD-EPI)NonAf (>60 ml/min/1.73 sqM) Glucose (74-99) mg/dL Calcium (8.4-10.2) mg/dL Total Bilirubin (0.2-1.3) mg/dL AST (17-59) U/L ALT (4-49) U/L Alkaline Phosphatase (38-126) U/L Troponin I <0.012 (0.000-0.034) ng/mL Total Protein (6.3-8.2) g/dL Albumin (3.5-5.0) g/dL Disposition Clinical Impression: Headache Disposition: HOME SELF-CARE Condition: Good Instructions (If sedation given, give patient instructions): Acute Headache (ED) Is patient prescribed a controlled substance at d/c from ED?: No Referrals: Eve Swartz MD [Primary Care Provider] - 1-2 days
[2022-03-07 13:30] LABS: Basophils % (A) 0 %; Eosinophils % (A) 0 %; HCT 43.4 % (39.0-53.0); HGB 14.4 gm/dL (13.0-17.5); Lymphocytes # (A) 0.9 k/uL (1.0-4.8); Lymphocytes % (A) 13 %; MCH 33.1 pg (25.0-35.0); MCHC 33.3 g/dL (31.0-37.0); MCV 99.6 fL (80.0-100.0); Mean Platelet Volume 7.9; Monocytes # (A) 0.4 k/uL (0-1.0); Monocytes % (A) 6 %; Neutrophils # (A) 5.2 k/uL (1.3-7.7); Neutrophils % (A) 78 %; Platelet Count 212 k/uL (150-450); RBC 4.36 m/uL (4.30-5.90); RDW 13.4 % (11.5-15.5); WBC 6.7 k/uL (3.8-10.6)
--- NOTE | 2022-03-07 13:36 | CT ---
EXAMINATION TYPE: CT brain wo con DATE OF EXAM: 03/07/2022 COMPARISON: 07/06/21 HISTORY: weakness, ams CT DLP: 1133.[address] of the brain was performed. The ventricles, basal cisterns and sulci overlying the cerebral convexities demonstrate mild enlargem ent. There is no evidence for intracranial hemorrhage or sulcal effacement. There is decreased attenuation about the periventricular white matter and deep white matter of both c erebral hemispheres, compatible with chronic small vessel ischemia. Differential diagnosis does inclu de demyelination. No mass effects are seen.No midline shift. Osseous calvarium is intact. Moderate opacification left-sided ethmoid air cells and sphenoid sinus. If symptoms persist consider MRI. IMPRESSION: 1. Age related atrophic and chronic small vessel ischemic change without acute intracranial process s een at this time.
[2022-03-07 13:39] LABS: Albumin 3.7 g/dL (3.5-5.0); Potassium 4.4 mmol/L (3.5-5.1); Total Protein 6.4 g/dL (6.3-8.2)
--- NOTE | 2022-03-07 13:45 | XR ---
EXAMINATION TYPE: XR chest 2V DATE OF EXAM: 03/07/2022 COMPARISON: 07/13/2021 HISTORY: Shortness of breath TECHNIQUE: Frontal and lateral views of the chest are obtained. FINDINGS: Scattered senescent parenchymal changes noted. Hyperinflation compatible with COPD. No evidence for infiltrate. No evidence for atelectasis. Heart size is stable. Mediastinal structures are stable and grossly unremarkable. No evidence for hilar prominence. Degenerative changes dorsal spine. IMPRESSION: 1. No evidence for acute pulmonary disease.
[2022-03-07 13:57] LABS: INR 1.1 (<1.2); Partial Thromboplastin Time 29.2 sec (22.0-30.0); Prothrombin Time 11.8 sec (9.0-12.0)
[2022-03-07 16:12] VITALS: BP 139/98; PULSE 83; RESP 18; TEMP 97.4
[2022-03-07 16:56] LABS: Appearance,Urine Cloudy (Clear); Bacteria,Urine Rare /hpf; Bilirubin,Urine Negative (Negative); Blood,Urine Large (Negative); Color,Urine Yellow; Glucose,Urine (UA) Negative (Negative); Hyaline Casts,Urine 5 /lpf (0-2); Ketones,Urine Negative (Negative); Leukocyte Esterase,Urine Negative (Negative); Mucus,Urine Rare /hpf; Nitrite,Urine Negative (Negative); Protein,Urine Trace (Negative); RBC,Urine >182 /hpf (0-5); Specific Gravity,Urine 1.014 (1.001-1.035); Urobilinogen,Urine <2.0 mg/dL (<2.0); WBC,Urine 1 /hpf (0-5)
== END 2022-03-07 17:05 | disposition home or self-care (01) ==
LOC: EC 12:03
DX: R51.9 Headache, unspecified (principal); I67.82 Cerebral ischemia; I11.9 Hypertensive heart disease without heart failure; I25.10 Atherosclerotic heart disease of native coronary artery without angina pectoris; I25.2 Old myocardial infarction; I48.91 Unspecified atrial fibrillation; K21.9 Gastro-esophageal reflux disease without esophagitis; J44.9 Chronic obstructive pulmonary disease, unspecified; G45.9 Transient cerebral ischemic attack, unspecified; Z87.891 Personal history of nicotine dependence; Z79.01 Long term (current) use of anticoagulants; Z79.899 Other long term (current) drug therapy
CPT/HCPCS: 36415; 70450; 71046; 80053; 81001; 84484; 85025; 85610; 85730; 93005; 99285

== ENCOUNTER → 2022-04-10 | Outpatient (CLI) | payer MEDICARE ==
--- NOTE | 2022-04-10 14:29 | NM ---
EXAMINATION TYPE: NM bone scan whole body DATE OF EXAM: 04/10/2022 COMPARISON: CT brain March 07, 2022 HISTORY: Prostate cancer Delayed whole-body scanning was performed following the injection of 22.9 mCi Tc 99m MDP. Images acq uired 3.5 hours post injection. Whole body images in anterior and posterior projection along with add itional spot views of the thorax abdomen and pelvis are acquired. FINDINGS: No suspicious increased radiotracer uptake to suggest metastatic disease to the bone or oth er suspicious abnormality. Normal excretion is seen. Increased radiotracer uptake left nasal region c ould reflect product of sinusitis. Findings correlate with CT brain study showing paranasal sinus dis ease greater on the left from March 07, 2022 IMPRESSION: As above.
== END | disposition home or self-care (01) ==
LOC: RADNMMAIN 09:57
PROVIDERS: ATTEND Urology
DX: C61 Malignant neoplasm of prostate (principal)
CPT/HCPCS: 78306; A9503

== ENCOUNTER → 2022-07-26 | Outpatient (CLI) | payer MEDICARE ==
[2022-07-26 21:58] LABS: Prostate Specific Antigen 0.7 ng/mL (0.00-6.50); Testosterone 7.27 ng/mL (86.98-780.10)
== END | disposition home or self-care (01) ==
LOC: LABWHC1 11:27
PROVIDERS: ATTEND Urology
DX: C61 Malignant neoplasm of prostate (principal)
CPT/HCPCS: 36415; 84153; 84403

== ENCOUNTER → 2023-04-19 | Outpatient (CLI) | payer MEDICARE ==
[2023-04-20 02:39] LABS: Prostate Specific Antigen 1.46 ng/mL (0.000-6.500); Testosterone <10.00 ng/dL (86.98-780.10)
== END | disposition home or self-care (01) ==
LOC: LABWHC1 15:16
PROVIDERS: ATTEND Urology
DX: C61 Malignant neoplasm of prostate (principal)
CPT/HCPCS: 36415; 84153; 84403